=== PATIENT | female | born 1955 | race Caucasian/White ===

== ENCOUNTER → 2016-10-26 | Outpatient (CLI) | payer BC ==
--- NOTE | 2016-10-26 11:50 | XR ---
EXAMINATION TYPE: XR forearm LT DATE OF EXAM ORDERED: 10/26/2016 11:24 AM HISTORY: pain R52. COMPARISON: None. FINDINGS: No fracture, dislocation or other acute osseous lesion is seen. IMPRESSION: NORMAL LEFT RADIUS AND ULNA. IN LIGHT OF THE PATIENT'S CLINICAL HISTORY AND DEDICATED STUDY OF THE EL BOW MAY BE WORTHWHILE.
== END | disposition home or self-care (01) ==
LOC: RADXRMAIN 11:06
PROVIDERS: ATTEND Family Medicine
DX: M25.522 Pain in left elbow (principal)

== ENCOUNTER → 2016-11-03 | Outpatient (CLI) | payer BC ==
[2016-11-03 09:06] LABS: Blood Urea Nitrogen 15 mg/dL (7-17); Non-African American GFR(MDRD) >60 (>60 ml/min/1.73 sqM)
--- NOTE | 2016-11-03 10:07 | CT ---
EXAMINATION TYPE: CT soft tissue neck w con DATE OF EXAM: 11/03/2016 9:46 AM COMPARISON: NONE HISTORY: Right sided neck swelling CT DLP: 655.3 mGycm Automated exposure control for dose reduction was used. CONTRAST: CT scan of the neck is performed following with IV Contrast, patient injected with 100 mL of Omnipaqu e 300. Axial images are obtained, coronal and sagittal reformatted images are reviewed. FINDINGS: Degenerative changes spine with postsurgical changes noted. Lung apices clear with paraseptal emphysematous changes. Thyroid gland enhances normally. No evidence of thyroid nodule. Atherosclerotic change involving the carotid bifurcation bilaterally Carotid and submandibular glands have a normal appearance. Nasopharynx and oropharynx symmetric. Calc ification along the left globe incidentally noted. Base of the tongue is symmetric. Shotty adenopathy seen throughout the neck bilaterally with no pathologic adenopathy identified. IMPRESSION: 1. No evidence of soft tissue mass or acute process.
--- NOTE | 2016-11-03 11:21 | FL ---
ESOPHOGRAM. HISTORY: Dysphagia Esophagram was performed per the air contrast technique. The patient swallowed barium and effervesce nt crystals without difficulty or delay. Esophageal peristalsis and motility appear to be within normal limits. There is no evidence for filling defect, mass or diverticulum. There is a small sliding-type hiatal hernia. Subsequently single contrast cervical esophagram was performed which fails demonstrate evidence for a spiration penetration or mass. IMPRESSION: Small sliding-type hiatal hernia. Otherwise unremarkable study.
== END ==
LOC: RADCTMAIN 08:12
PROVIDERS: ATTEND Family Medicine
DX: K44.9 Diaphragmatic hernia without obstruction or gangrene (principal)
CPT/HCPCS: 82565; 84520; 74220; 70491; 36415; Q9967

== ENCOUNTER 2016-11-08 07:31 | Day surgery (SDC) | payer BC ==
[2016-11-03 14:33] VITALS: BMI 33.6
[~2016-11-08 07:31] MED LIST: LACTATED RINGERS 1,000 ML IV SCH; LIDOCAINE 1% 20 ML VIAL (10MG/ML) FOR IV START INTRADERMA PRN
[2016-11-08 07:57] VITALS: TEMP 97.7
[2016-11-08 08:10] LABS: Glucose,Whole Blood 224 mg/dL (75-99)
[2016-11-08] MEDS ORDERED: LIDOCAINE 1% INJ 10MG/ML (20 ML MDV) ONE (08:46)
[2016-11-08] MEDS ORDERED: GLYCOPYRROLATE 0.2 MG/ML 2 ML VIAL ONE (08:46)
[2016-11-08] MEDS ORDERED: PROPOFOL 10 MG/ML 20 ML VIAL IV ONE (08:46)
--- NOTE | 2016-11-08 09:11 | P.PCN ---
Date of Procedure: 11/08/16 Procedure(s) Performed: Procedure: Esophagogastroduodenoscopy and biopsy. Preoperative diagnosis: Dysphagia. Postoperative diagnosis: 1. Small sliding hiatal hernia with no obvious esophagitis or complicated reflux disease. 2. Mild gastritis and duodenitis. Preparation sedation: Was provided by anesthesia. Brief clinical history: The patient is a 61-year-old female who is referred for this evaluation because of fissures with dysphagia that she has been having for the last 2-3 months. She may have had problems years before, but for several years recently she had no problems until the onset of her symptoms within the last 2-3 months and apparently getting worse. No alarm symptoms. No prior history of reflux. Procedure: With the patient on her left lateral decubitus position and after informed consent and adequate sedation, I passed the Olympus-GIF 160 video upper endoscope through the cricopharyngeus down the esophagus. GE junction was around 38 cm from the incisors and there was a small sliding hiatal hernia. The esophagus did not show any obvious erosions, ulcers, strictures or Vora 's esophagus. The endoscope was then passed into the stomach which was insufflated with air and inspected in detail including the retroflex view in the cardia. Finally the endoscope was passed through the pylorus into the duodenum. There were no pyloric channel ulcers. Duodenal bulb, post bulbar area and descending duodenum as well as the antrum showed minimal mottling and erythema consistent with mild gastritis and duodenitis. I obtained biopsies from the duodenum, antrum and esophagus then the endoscope was withdrawn. The patient tolerated the procedure well. Plan: The patient was reassured. Will await pathology results. Its possible that we are dealing with a motility disorder and this can be investigated further depending on her course, especially if there is nutritional compromise.
[2016-11-08 09:12] VITALS: RESP 18
[2016-11-08 09:47] VITALS: BP 156/70; PULSE 79
== END 2016-11-08 09:56 | disposition home or self-care (01) ==
LOC: ORWHC2ENDO 07:31
DX: K29.80 Duodenitis without bleeding (principal); K29.70 Gastritis, unspecified, without bleeding; K20.9 Esophagitis, unspecified; K44.9 Diaphragmatic hernia without obstruction or gangrene; I10 Essential (primary) hypertension; E11.9 Type 2 diabetes mellitus without complications; Z88.5 Allergy status to narcotic agent; Z79.891 Long term (current) use of opiate analgesic; Z79.4 Long term (current) use of insulin; Z79.899 Other long term (current) drug therapy; Z86.73 Personal history of transient ischemic attack (TIA), and cerebral infarction without residual deficits
CPT/HCPCS: 88305; 88342; 43239; J2001; J2704

== ENCOUNTER 2017-09-06 20:57 | Inpatient (IN) | payer BC ==
[2017-09-06] MEDS ORDERED: SODIUM CHLORIDE 0.9% 1,000 ML IV STA ×2 (21:16→21:46)
[2017-09-06] MEDS ORDERED: ONDANSETRON 4 MG/2 ML VIAL IVP STA (21:16)
[2017-09-06] MEDS ORDERED: SODIUM CHLORIDE 0.9% 500 ML IV STA (21:16)
[2017-09-06] MEDS ORDERED: PANTOPRAZOLE 40 MG/10 ML VIAL IVP STA (21:16)
[2017-09-06] MEDS ORDERED: MORPHINE SULFATE 5 MG/ML SYRINGE IVP STA (21:46)
--- NOTE | 2017-09-06 22:06 | ED ---
General Adult HPI - General Chief complaint: Recheck/Abnormal Lab/Rx Stated complaint: HYPERGLYCEMIA Time Seen by Provider: 09/06/17 21:15 Source: EMS, RN notes reviewed, old records reviewed Mode of arrival: EMS Limitations: no limitations - History of Present Illness Initial comments: This is a 8-year-old female to the ER for evaluation of weakness, nausea, vomiting, back pain. Patient has not been for a day, been vomiting all day today. Patient has diabetes blood sugar was running high earlier today. Patient denies any recent fevers. No abdominal pain. No recent change in medications. No sick contacts or travel history. - Related Data Home Medications Medication Instructions Recorded Confirmed Latanoprost Ophth [Xalatan 0.005%] 1 drops BOTH EYES HS 11/03/16 09/06/17 Valsartan [Diovan] 160 mg PO DAILY 11/03/16 09/06/17 INSULIN LISPRO (For Pump) [humaLOG 0.01 units SQ-PUMP CONTINUOUS 09/06/17 (For Pump)] Allergies Allergy/AdvReac Type Severity Reaction Status Date / Time codeine Allergy Nausea & Verified 09/06/17 21:30 Vomiting Review of Systems ROS Statement: Those systems with pertinent positive or pertinent negative responses have been documented in the HPI. ROS Other: All systems not noted in ROS Statement are negative. Past Medical History Past Medical History: CVA/TIA, Diabetes Mellitus, Hypertension Additional Past Medical History / Comment(s): chronic back and neck pain History of Any Multi-Drug Resistant Organisms: None Reported Past Surgical History: Orthopedic Surgery, Tubal Ligation Past Psychological History: No Psychological Hx Reported Smoking Status: Never smoker Past Alcohol Use History: None Reported Past Drug Use History: None Reported General Exam Limitations: no limitations General appearance: alert, lethargic, in distress Head exam: Present: atraumatic, normocephalic, normal inspection Eye exam: Present: normal appearance, PERRL, EOMI. Absent: scleral icterus, conjunctival injection, periorbital swelling ENT exam: Present: normal exam, mucous membranes moist Neck exam: Present: normal inspection. Absent: tenderness, meningismus, lymphadenopathy Respiratory exam: Present: normal lung sounds bilaterally. Absent: respiratory distress, wheezes, rales, rhonchi, stridor Cardiovascular Exam: Present: regular rate, normal rhythm, normal heart sounds. Absent: systolic murmur, diastolic murmur, rubs, gallop, clicks GI/Abdominal exam: Present: soft, normal bowel sounds. Absent: distended, tenderness, guarding, rebound, rigid Extremities exam: Present: normal inspection, full ROM, normal capillary refill. Absent: tenderness, pedal edema, joint swelling, calf tenderness Back exam: Present: normal inspection Neurological exam: Present: alert, oriented X3, CN II-XII intact Psychiatric exam: Present: normal affect, normal mood Skin exam: Present: warm, dry, intact, normal color. Absent: rash Course Vital Signs 09/06/17 21:03 Pulse Rate 91 Respiratory 22 Rate Blood Pressure 199/80 O2 Sat by Pulse 100 Oximetry - Reevaluation(s) Reevaluation #1: 09/06/17 22:34 Patient continued to vomit, severely dehydrated although feeling better with IV hydration, symptom management EKG Findings - EKG Comments: EKG Findings:: AG shows normal sinus rhythm rate of 86, PA 200, QRS 92, QTc 509 Medical Decision Making - Medical Decision Making 62 female ER for evaluation nausea vomiting dehydration, patient will be admitted for IV resuscitation and symptoms management, patient was severely elevated blood sugar, acidotic, DKA. Patient be admitted for insulin, IV resuscitation and monitoring of electrolytes. - Lab Data Result diagrams: 09/06/17 21:42 Lab Results 09/06/17 09/06/17 09/06/17 Range/Units 20:02 20:02 21:42 WBC 28.7 H* (3.8-10.6) k/uL RBC 5.11 (3.80-5.40) m/uL Hgb 14.1 (11.4-16.0) gm/dL Hct 51.7 H (34.0-46.0) % MCV 101.2 H (80.0-100.0) fL MCH 27.6 (25.0-35.0) pg MCHC 27.2 L (31.0-37.0) g/dL RDW 12.7 (11.5-15.5) % Plt Count 398 (150-450) k/uL Plasma Lactic Acid Galen 8.0 H* (0.7-2.0) mmol/L Acetone, Qual Positive (Negative) - Radiology Data Radiology results: report reviewed (Chest x-ray is negative), image reviewed Disposition Clinical Impression: Nausea & vomiting, Dehydration, Lactic acidosis, DKA (diabetic ketoacidoses) Disposition: ADMITTED IP TO THIS HOSP Condition: Serious Referrals: Vianney Cantu MD [Primary Care Provider] - 1-2 days
[2017-09-06 22:15] LABS: HCT 51.7 % (34.0-46.0); HGB 14.1 gm/dL (11.4-16.0); Hypochromasia Marked; MCH 27.6 pg (25.0-35.0); MCHC 27.2 g/dL (31.0-37.0); MCV 101.2 fL (80.0-100.0); Mean Platelet Volume 7.5; Platelet Count 398 k/uL (150-450); RBC 5.11 m/uL (3.80-5.40); RDW 12.7 % (11.5-15.5)
[2017-09-06 22:17] LABS: WBC 28.7 k/uL (3.8-10.6)
[2017-09-06 22:24] LABS: Albumin 4.4 g/dL (3.5-5.0); Calcium 9.4 mg/dL (8.4-10.2); Chloride 105 mmol/L (98-107); Sodium 143 mmol/L (137-145); Total Bilirubin 0.4 mg/dL (0.2-1.3)
[2017-09-06] MEDS ORDERED: SODIUM CHLORIDE 0.9% 1,000 ML IV ONE (22:35)
[2017-09-06] MEDS ORDERED: MORPHINE SULFATE 5 MG/ML SYRINGE IVP PRN (22:35)
[2017-09-06] MEDS ORDERED: ONDANSETRON 4 MG/2 ML VIAL IVP PRN (22:35)
[2017-09-06] MEDS ORDERED: INSULIN REGULAR BOLUS (FROM DRIP BAG) IV ONE (22:37)
[2017-09-06] MEDS ORDERED: cefTRIAXone IN SWFI 1,000 MG/10 ML SYRINGE IVP STA (22:37)
[2017-09-06 22:38] LABS: Carbon Dioxide <5 mmol/L (22-30); Glucose 714 mg/dL (74-99)
[2017-09-06 22:39] LABS: ALT 28 U/L (9-52); AST 32 U/L (14-36); Alkaline Phosphatase 149 U/L (38-126); Blood Urea Nitrogen 36 mg/dL (7-17); Magnesium 2.7 mg/dL (1.6-2.3); Potassium 6.1 mmol/L (3.5-5.1)
--- NOTE | 2017-09-06 22:44 | XR ---
EXAMINATION TYPE: XR chest 2V DATE OF EXAM: 09/06/2017 COMPARISON: 09/02/2014 HISTORY: Chest pain TECHNIQUE: Frontal and lateral views of the chest are obtained. FINDINGS: Heart and mediastinum are normal. Lungs are clear of consolidation. Diaphragm is normal. T here are chest leads. Bony thorax is intact. IMPRESSION: No active cardiopulmonary disease. No adverse change compared to old exam. Minimal scarr ing at the left lung base.
[2017-09-06 22:46] LABS: Creatine Kinase MB 1.6 ng/mL (0.0-2.4)
[2017-09-06 22:48] LABS: Troponin I 0.074 ng/mL (0.000-0.034)
[2017-09-06 23:01] LABS: Band Neutrophils % 4 %; Lymphocytes # (M) 2.87 k/uL (1.0-4.8); Monocytes # (M) 0.57 k/uL (0-1.0); Myelocytes # (M) 1.44 k/uL (0); Myelocytes % 5 %; Neutrophils % (M) 80 %; Nucleated Red Blood Cells 0 /100 WBC (0-0); Total Cells Counted 200
[2017-09-06 23:02] LABS: Crenated RBC Present; Polychromasia Present
[2017-09-06 23:08] LABS: Partial Thromboplastin Time 30.8 sec (22.0-30.0); Prothrombin Time 10.1 sec (9.0-12.0); VBG PH 6.78 (7.31-7.41)
[2017-09-06] MEDS: INSULIN REGULAR 100 UNIT in SODIUM CHLORIDE 0.9% 100 ML IV SCH (23:13)
[2017-09-06] MEDS ORDERED: SODIUM BICARB 8.4% 50 ML SYR (1 MEQ/ML) IV ONE (23:21)
--- NOTE | 2017-09-06 23:25 | ED ---
Medical Decision Making - Medical Decision Making 62 female here with severe dehydration nausea vomiting and DKA, severely low pH 6.8, patient bicarb, insulin drip was IV resuscitation, all x-rays replaced as needed, patient will be admitted to ICU. - Lab Data Result diagrams: 09/06/17 21:42 09/06/17 20:02 Lab Results 09/06/17 09/06/17 09/06/17 Range/Units 20:02 20:02 20:02 WBC (3.8-10.6) k/uL RBC (3.80-5.40) m/uL Hgb (11.4-16.0) gm/dL Hct (34.0-46.0) % MCV (80.0-100.0) fL MCH (25.0-35.0) pg MCHC (31.0-37.0) g/dL RDW (11.5-15.5) % Plt Count (150-450) k/uL Neutrophils % (Manual) % Band Neutrophils % % Lymphocytes % (Manual) % Monocytes % (Manual) % Myelocytes % % Neutrophils # (Manual) (1.3-7.7) k/uL Lymphocytes # (Manual) (1.0-4.8) k/uL Monocytes # (Manual) (0-1.0) k/uL Myelocytes # (Manual) (0) k/uL Nucleated RBCs (0-0) /100 WBC Manual Slide Review Polychromasia Hypochromasia Crenated Cell PT (9.0-12.0) sec INR (<1.2) APTT (22.0-30.0) sec VBG pH (7.31-7.41) VBG pCO2 (37-51) mmHg VBG HCO3 (24-28) mmol/L Sodium 143 (137-145) mmol/L Potassium 6.1 H (3.5-5.1) mmol/L Chloride 105 (98-107) mmol/L Carbon Dioxide <5 L* (22-30) mmol/L Anion Gap mmol/L BUN 36 H (7-17) mg/dL Creatinine 1.50 H (0.52-1.04) mg/dL Est GFR (MDRD) Af Amer 43 (>60 ml/min/1.73 sqM) Est GFR (MDRD) Non-Af 35 (>60 ml/min/1.73 sqM) Glucose 714 H* (74-99) mg/dL Plasma Lactic Acid Galen (0.7-2.0) mmol/L Calcium 9.4 (8.4-10.2) mg/dL Magnesium 2.7 H (1.6-2.3) mg/dL Total Bilirubin 0.4 (0.2-1.3) mg/dL AST 32 (14-36) U/L ALT 28 (9-52) U/L Alkaline Phosphatase 149 H (38-126) U/L Total Creatine Kinase 88 (30-135) U/L CK-MB (CK-2) 1.6 (0.0-2.4) ng/mL CK-MB (CK-2) Rel Index 1.8 Troponin I 0.074 H* (0.000-0.034) ng/mL Total Protein 7.0 (6.3-8.2) g/dL Albumin 4.4 (3.5-5.0) g/dL Acetone, Qual Positive (Negative) Influenza Type A RNA (Not Detectd) Influenza Type B (PCR) (Not Detectd) 09/06/17 09/06/17 09/06/17 Range/Units 20:02 21:42 22:33 WBC 28.7 H* (3.8-10.6) k/uL RBC 5.11 (3.80-5.40) m/uL Hgb 14.1 (11.4-16.0) gm/dL Hct 51.7 H (34.0-46.0) % MCV 101.2 H (80.0-100.0) fL MCH 27.6 (25.0-35.0) pg MCHC 27.2 L (31.0-37.0) g/dL RDW 12.7 (11.5-15.5) % Plt Count 398 (150-450) k/uL Neutrophils % (Manual) 80 % Band Neutrophils % 4 % Lymphocytes % (Manual) 10 % Monocytes % (Manual) 2 % Myelocytes % 5 % Neutrophils # (Manual) 24.10 H (1.3-7.7) k/uL Lymphocytes # (Manual) 2.87 (1.0-4.8) k/uL Monocytes # (Manual) 0.57 (0-1.0) k/uL Myelocytes # (Manual) 1.44 H (0) k/uL Nucleated RBCs 0 (0-0) /100 WBC Manual Slide Review Performed Polychromasia Present Hypochromasia Marked Crenated Cell Present PT (9.0-12.0) sec INR (<1.2) APTT (22.0-30.0) sec VBG pH 6.78 L* (7.31-7.41) VBG pCO2 22 L (37-51) mmHg VBG HCO3 3 L* (24-28) mmol/L Sodium (137-145) mmol/L Potassium (3.5-5.1) mmol/L Chloride (98-107) mmol/L Carbon Dioxide (22-30) mmol/L Anion Gap mmol/L BUN (7-17) mg/dL Creatinine (0.52-1.04) mg/dL Est GFR (MDRD) Af Amer (>60 ml/min/1.73 sqM) Est GFR (MDRD) Non-Af (>60 ml/min/1.73 sqM) Glucose (74-99) mg/dL Plasma Lactic Acid Galen 8.0 H* (0.7-2.0) mmol/L Calcium (8.4-10.2) mg/dL Magnesium (1.6-2.3) mg/dL Total Bilirubin (0.2-1.3) mg/dL AST (14-36) U/L ALT (9-52) U/L Alkaline Phosphatase (38-126) U/L Total Creatine Kinase (30-135) U/L CK-MB (CK-2) (0.0-2.4) ng/mL CK-MB (CK-2) Rel Index Troponin I (0.000-0.034) ng/mL Total Protein (6.3-8.2) g/dL Albumin (3.5-5.0) g/dL Acetone, Qual (Negative) Influenza Type A RNA (Not Detectd) Influenza Type B (PCR) (Not Detectd) 09/06/17 09/06/17 Range/Units 22:33 22:55 WBC (3.8-10.6) k/uL RBC (3.80-5.40) m/uL Hgb (11.4-16.0) gm/dL Hct (34.0-46.0) % MCV (80.0-100.0) fL MCH (25.0-35.0) pg MCHC (31.0-37.0) g/dL RDW (11.5-15.5) % Plt Count (150-450) k/uL Neutrophils % (Manual) % Band Neutrophils % % Lymphocytes % (Manual) % Monocytes % (Manual) % Myelocytes % % Neutrophils # (Manual) (1.3-7.7) k/uL Lymphocytes # (Manual) (1.0-4.8) k/uL Monocytes # (Manual) (0-1.0) k/uL Myelocytes # (Manual) (0) k/uL Nucleated RBCs (0-0) /100 WBC Manual Slide Review Polychromasia Hypochromasia Crenated Cell PT 10.1 (9.0-12.0) sec INR 1.0 (<1.2) APTT 30.8 H (22.0-30.0) sec VBG pH (7.31-7.41) VBG pCO2 (37-51) mmHg VBG HCO3 (24-28) mmol/L Sodium (137-145) mmol/L Potassium (3.5-5.1) mmol/L Chloride (98-107) mmol/L Carbon Dioxide (22-30) mmol/L Anion Gap mmol/L BUN (7-17) mg/dL Creatinine (0.52-1.04) mg/dL Est GFR (MDRD) Af Amer (>60 ml/min/1.73 sqM) Est GFR (MDRD) Non-Af (>60 ml/min/1.73 sqM) Glucose (74-99) mg/dL Plasma Lactic Acid Galen (0.7-2.0) mmol/L Calcium (8.4-10.2) mg/dL Magnesium (1.6-2.3) mg/dL Total Bilirubin (0.2-1.3) mg/dL AST (14-36) U/L ALT (9-52) U/L Alkaline Phosphatase (38-126) U/L Total Creatine Kinase (30-135) U/L CK-MB (CK-2) (0.0-2.4) ng/mL CK-MB (CK-2) Rel Index Troponin I (0.000-0.034) ng/mL Total Protein (6.3-8.2) g/dL Albumin (3.5-5.0) g/dL Acetone, Qual (Negative) Influenza Type A RNA Not Detected (Not Detectd) Influenza Type B (PCR) Not Detected (Not Detectd) - Radiology Data Radiology results: report reviewed (Chest x-ray is negative for acute disease), image reviewed Critical Care Time Critical Care Time: Yes Total Critical Care Time: 31 Disposition Clinical Impression: Nausea & vomiting, Dehydration, Lactic acidosis, DKA (diabetic ketoacidoses) Disposition: ADMITTED IP TO THIS [facility] Condition: Serious Referrals: Vianney Cantu MD [Primary Care Provider] - 1-2 days
[2017-09-07 00:20] LABS: Appearance,Urine Cloudy (Clear); Bilirubin,Urine Negative (Negative); Blood,Urine Small (Negative); Color,Urine Light Yellow; Glucose,Urine (UA) 4+ (Negative); Granular Casts,Urine 1 /lpf (0); Leukocyte Esterase,Urine Negative (Negative); Nitrite,Urine Negative (Negative); Protein,Urine 1+ (Negative); RBC,Urine 4 /hpf (0-5); Specific Gravity,Urine 1.013 (1.001-1.035); Squamous Epithelial Cell,Urine 3 /hpf (0-4); Urobilinogen,Urine <2.0 mg/dL (<2.0); WBC,Urine 5 /hpf (0-5)
[2017-09-07 00:23] LABS: Ketones,Urine 3+ (Negative)
[2017-09-07 00:27] LABS: Glucose,Whole Blood >600 mg/dL (75-99)
[2017-09-07] MEDS: SODIUM CHLORIDE 0.9% 1,000 ML IV STA ×2 (00:49→03:23)
[2017-09-07 01:18] LABS: Glucose,Whole Blood 556 mg/dL (75-99)
[2017-09-07 02:14] LABS: Blood Urea Nitrogen 39 mg/dL (7-17); Chloride 112 mmol/L (98-107); Phosphorus 6.2 mg/dL (2.5-4.5); Potassium 5.3 mmol/L (3.5-5.1); Sodium 146 mmol/L (137-145)
[2017-09-07 02:20] LABS: Carbon Dioxide <5 mmol/L (22-30); Glucose 619 mg/dL (74-99)
[2017-09-07 02:29] LABS: Glucose,Whole Blood 512 mg/dL (75-99)
[2017-09-07 03:09] LABS: Glucose,Whole Blood 506 mg/dL (75-99)
[2017-09-07] MEDS: SODIUM CHLORIDE 0.9% 1,000 ML IV SCH ×2 (03:24→04:12)
[2017-09-07 04:16] LABS: Glucose,Whole Blood 394 mg/dL (75-99)
[2017-09-07] MEDS ORDERED: NALOXONE 0.4 MG/ML 1 ML VIAL IV PRN (04:28)
[2017-09-07 05:09] LABS: Glucose,Whole Blood 409 mg/dL (75-99)
[2017-09-07 06:00] LABS: Basophils # (A) 0.1 k/uL (0-0.2); Basophils % (A) 1 %; Eosinophils % (A) 0 %; HCT 42.5 % (34.0-46.0); HGB 12.7 gm/dL (11.4-16.0); Hypochromasia Marked; Lymphocytes % (A) 9 %; MCHC 29.8 g/dL (31.0-37.0); Mean Platelet Volume 7.8; Monocytes # (A) 1.1 k/uL (0-1.0); Monocytes % (A) 5 %; Neutrophils # (A) 19.6 k/uL (1.3-7.7); Neutrophils % (A) 85 %; Platelet Count 302 k/uL (150-450)
[2017-09-07 06:11] LABS: Glucose,Whole Blood 344 mg/dL (75-99)
[2017-09-07 06:16] LABS: MCV 90.5 fL (80.0-100.0)
[2017-09-07 06:17] LABS: Calcium 8.9 mg/dL (8.4-10.2)
[2017-09-07 06:23] LABS: Potassium 4.7 mmol/L (3.5-5.1)
[2017-09-07 06:24] LABS: Magnesium 2.5 mg/dL (1.6-2.3); Phosphorus 1.9 mg/dL (2.5-4.5)
[2017-09-07 06:59] LABS: Glucose,Whole Blood 282 mg/dL (75-99)
[2017-09-07] MEDS: D5-0.45% NACL WITH KCL 20MEQ/L 1,000 ML IV SCH ×2 (07:33)
[2017-09-07 08:24] LABS: Glucose,Whole Blood 248 mg/dL (75-99)
[2017-09-07] MEDS: INSULIN REGULAR 100 UNIT in SODIUM CHLORIDE 0.9% 100 ML IV SCH ×2 (08:25→09:23)
[2017-09-07] MEDS: ENOXAPARIN 40 MG/0.4 ML SYRINGE SQ SCH (08:26)
[2017-09-07] MEDS ORDERED: SODIUM CHLORIDE 0.9% 2,000 ML IV ONE (08:33)
[2017-09-07] MEDS: PANTOPRAZOLE 40 MG/10 ML VIAL IVP SCH (09:21)
[2017-09-07 09:22] LABS: Glucose,Whole Blood 264 mg/dL (75-99)
[2017-09-07 10:00] LABS: VBG PH 7.28 (7.31-7.41)
[2017-09-07 10:03] LABS: Anion Gap 10 mmol/L; Blood Urea Nitrogen 34 mg/dL (7-17); Carbon Dioxide 17 mmol/L (22-30); Glucose 254 mg/dL (74-99); Lipase 266 U/L (23-300); Potassium 4.4 mmol/L (3.5-5.1); Sodium 149 mmol/L (137-145)
[2017-09-07 10:05] LABS: Glucose,Whole Blood 222 mg/dL (75-99)
[2017-09-07 10:08] LABS: Phosphorus 0.9 mg/dL (2.5-4.5)
[2017-09-07 10:09] LABS: Chloride 122 mmol/L (98-107)
[2017-09-07 11:12] LABS: Glucose,Whole Blood 223 mg/dL (75-99)
[2017-09-07] MEDS ORDERED: SODIUM CHLORIDE 0.45% 1,000 ML IV SCH (12:00)
--- NOTE | 2017-09-07 12:21 | P.HPIM ---
History of Present Illness H&P Date: 09/07/17 Chief Complaint: high blood sugar This is a 62-year-old female patient of Dr. Cantu with past medical history of diabetes mellitus type 1 diagnosed at age 23, hypertension, chronic back and neck pain, or coma and diabetic retinopathy and remote history of tobacco use. Patient states that she thought she had the stomach flu sudden onset yesterday. She was feeling weak and lethargic along with a cough and vomiting every 30 minutes. She tried to drink water, flavored water, apple juice but continued to vomit. She had no food intake. She follows with fur farmer Dr. Gibson at the [facility] and is on an insulin pump which she has had for years. She states she has never had DKA in the past. Her blood sugar at the lowest at home yesterday was 425 but climbing higher. She came into [facility] emergency center and was found have a blood sugar of 714, positive acetone, influenza negative, lipase negative, sodium was 143 and potassium 6.1, BUN 36 creatinine 1.5. Her initial lactic acid was 8 with repeat at 1.1. Phosphorus initially 10.9 with repeat is 0.9. Initial troponin was 0.07 for repeat was 0.276. Initial venous blood gas was pH 6.78, CO2 22 and bicarb 3. Urinalysis was cloudy, nitrate and leukoesterase negative. She was given 3 L IV fluid bolus, sodium bicarb,and insulin drip was started. she has not required vasopressors.Patient was admitted into intensive care unit and consult requested with Dr. Caballero for intensive care management. Subsequently, consult with cardiology added for elevated troponin. Urine culture is in progress and hemoglobin A1c is in progress. Patient has requested to be no CODE STATUS. Patient does state that she follows with an eye doctor and foot doctor on a regular basis. Patient's is to bring in her insulin pump from home. Review of Systems All systems: negative Constitutional: Reports fatigue, Reports lethargy, Reports malaise, Reports weakness, Denies chills, Denies fever Eyes: denies blurred vision, denies pain Ears, nose, mouth and throat: Denies headache, Denies sore throat Cardiovascular: Reports shortness of breath, Denies chest pain, Denies syncope Respiratory: Reports cough, Reports dyspnea, Denies cough with sputum, Denies excessive sputum, Denies hemoptysis, Denies home oxygen Gastrointestinal: Reports nausea, Reports vomiting, Denies abdominal pain, Denies diarrhea Genitourinary: Denies dysuria, Denies hematuria Musculoskeletal: Denies myalgias Integumentary: Denies pruritus, Denies rash Neurological: Denies numbness, Denies weakness Psychiatric: Denies anxiety, Denies depression Endocrine: Denies fatigue, Denies weight change Past Medical History Past Medical History: CVA/TIA, Diabetes Mellitus, Hypertension Additional Past Medical History / Comment(s): diabetes mellitus type 1 on insulin pump, chronic back and neck pain, blind in left eye, diabetic retinopathy, glaucoma History of Any Multi-Drug Resistant Organisms: None Reported Past Surgical History: Orthopedic Surgery, Tubal Ligation Additional Past Surgical History / Comment(s): bilateral intraocular lens implants, laser surgery on her left eye Past Anesthesia/Blood Transfusion Reactions: No Reported Reaction Past Psychological History: No Psychological Hx Reported Smoking Status: Former smoker Past Alcohol Use History: None Reported Additional Past Alcohol Use History / Comment(s): patient was a smoker one pack per day for 20 years and quit 15 years ago. She denies any medical marijuana, marijuana, street drug or alcohol use. She lives at home with her . Past Drug Use History: None Reported - Past Family History Mother Additional Family Medical History / Comment(s): Mother had history of irregular heartbeat. Father Additional Family Medical History / Comment(s): Father at age 44 from complications of diabetes. Sister(s) Additional Family Medical History / Comment(s): Patient has one sister diagnosed with brain cancer and survived. She has no history of diabetes. Patient does not have any brothers. Patient has 2 children that are not diabetic. Medications and Allergies Home Medications Medication Instructions Recorded Confirmed Type Latanoprost Ophth [Xalatan 0.005%] 1 drops BOTH EYES HS 11/03/16 09/06/17 History Valsartan [Diovan] 160 mg PO DAILY 11/03/16 09/06/17 History INSULIN LISPRO (For Pump) [humaLOG 0.01 units SQ-PUMP CONTINUOUS 09/06/17 History (For Pump)] Allergies Allergy/AdvReac Type Severity Reaction Status Date / Time codeine Allergy Nausea & Verified 09/06/17 21:30 Vomiting Physical Exam Vitals: Vital Signs Temp Pulse Pulse Resp BP Pulse Ox 09/07/17 08:00 98.5 F 94 17 134/55 99 09/07/17 07:30 96 20 108/45 99 09/07/17 07:03 100 09/07/17 07:00 94 17 108/45 99 09/07/17 06:30 97 22 121/42 99 09/07/17 06:00 94 17 121/42 100 09/07/17 05:30 96 18 109/42 100 09/07/17 05:00 95 15 109/42 100 09/07/17 04:30 95 16 108/55 100 09/07/17 04:00 97.2 F L 94 90 13 104/36 100 09/07/17 03:30 94 19 90/55 100 09/07/17 03:00 97.3 F L 91 17 101/39 100 09/07/17 02:30 96.6 F L 90 18 127/52 100 09/07/17 02:01 97.4 F L 90 17 100 09/07/17 02:00 92 18 150/65 100 09/07/17 01:00 94 18 128/58 100 09/07/17 00:00 84 139/61 09/06/17 23:30 92.2 F L 142/64 09/06/17 23:00 88 18 146/67 99 09/06/17 21:03 91 22 199/80 100 Intake and Output 09/06/17 09/07/17 09/07/17 22:59 06:59 14:59 Intake Total 1100 602.000 Output Total 600 210 Balance 500 392.000 Intake: IV 1100 400 Sodium Chloride 0.9% 1, 600 400 000 ml @ 200 mls/hr IV . Q5H DAVID Rx#:[id number] Sodium Chloride 0.9% 500 500 ml @ 999 mls/hr IV .Q31M STA Rx#:[id number] Intake, IV Titration 202.000 Amount Insulin Regular 100 unit 202.000 In Sodium Chloride 0.9% 100 ml @ 0.1 UNITS/KG/HR 9.62 mls/hr IV .[id number] DAVID Rx#:[id number] Output: Urine 600 210 Other: Voiding Method Indwelling Catheter Weight 95.254 kg 92 kg Gen: This is a 62 year old obese female. She is sitting up in the ICU bed and appears to be comfortable. HEENT: Head is atraumatic, normocephalic. Pupils equal, round. Sclerae is anicteric. conjunctiva pink. NECK: Supple. No JVD. No lymphadenopathy. No thyromegaly. Trachea midline. LUNGS: Clear to auscultation. No wheezes or rhonchi. No intercostal retractions. HEART: Regular rate and rhythm. 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 ABDOMEN: Obese. Soft. Bowel sounds are present. No masses. No tenderness.Merino catheter draining clear wilmer urine. EXTREMITIES: No pedal edema. No calf tenderness. NEUROLOGICAL: Patient is awake, alert and oriented x3. Cranial nerves 2 through 12 are grossly intact. Results CBC & Chem 7: 09/07/17 05:22 09/07/17 09:09 Labs: Abnormal Lab Results - Last 24 Hours (Table) 09/06/17 09/06/17 09/06/17 Range/Units 20:02 20:02 20:02 WBC (3.8-10.6) k/uL Hct (34.0-46.0) % MCV (80.0-100.0) fL MCHC (31.0-37.0) g/dL Neutrophils # (1.3-7.7) k/uL Neutrophils # (Manual) (1.3-7.7) k/uL Monocytes # (0-1.0) k/uL Myelocytes # (Manual) (0) k/uL APTT (22.0-30.0) sec VBG pH (7.31-7.41) VBG pCO2 (37-51) mmHg VBG HCO3 (24-28) mmol/L Sodium (137-145) mmol/L Potassium 6.1 H (3.5-5.1) mmol/L Chloride (98-107) mmol/L Carbon Dioxide <5 L* (22-30) mmol/L BUN 36 H (7-17) mg/dL Creatinine 1.50 H (0.52-1.04) mg/dL Glucose 714 H* (74-99) mg/dL POC Glucose (mg/dL) (75-99) mg/dL Plasma Lactic Acid Galen 8.0 H* (0.7-2.0) mmol/L Phosphorus (2.5-4.5) mg/dL Magnesium 2.7 H (1.6-2.3) mg/dL Alkaline Phosphatase 149 H (38-126) U/L Troponin I 0.074 H* (0.000-0.034) ng/mL Urine Appearance (Clear) Urine Protein (Negative) Urine Glucose (UA) (Negative) Urine Ketones (Negative) Urine Blood (Negative) 09/06/17 09/06/17 09/06/17 Range/Units 21:42 22:33 22:33 WBC 28.7 H* (3.8-10.6) k/uL Hct 51.7 H (34.0-46.0) % MCV 101.2 H (80.0-100.0) fL MCHC 27.2 L (31.0-37.0) g/dL Neutrophils # (1.3-7.7) k/uL Neutrophils # (Manual) 24.10 H (1.3-7.7) k/uL Monocytes # (0-1.0) k/uL Myelocytes # (Manual) 1.44 H (0) k/uL APTT 30.8 H (22.0-30.0) sec VBG pH 6.78 L* (7.31-7.41) VBG pCO2 22 L (37-51) mmHg VBG HCO3 3 L* (24-28) mmol/L Sodium (137-145) mmol/L Potassium (3.5-5.1) mmol/L Chloride (98-107) mmol/L Carbon Dioxide (22-30) mmol/L BUN (7-17) mg/dL Creatinine (0.52-1.04) mg/dL Glucose (74-99) mg/dL POC Glucose (mg/dL) (75-99) mg/dL Plasma Lactic Acid Galen (0.7-2.0) mmol/L Phosphorus (2.5-4.5) mg/dL Magnesium (1.6-2.3) mg/dL Alkaline Phosphatase (38-126) U/L Troponin I (0.000-0.034) ng/mL Urine Appearance (Clear) Urine Protein (Negative) Urine Glucose (UA) (Negative) Urine Ketones (Negative) Urine Blood (Negative) 0109/06/17 09/07/17 Range/Units 22:33 23:58 00:15 WBC (3.8-10.6) k/uL Hct (34.0-46.0) % MCV (80.0-100.0) fL MCHC (31.0-37.0) g/dL Neutrophils # (1.3-7.7) k/uL Neutrophils # (Manual) (1.3-7.7) k/uL Monocytes # (0-1.0) k/uL Myelocytes # (Manual) (0) k/uL APTT (22.0-30.0) sec VBG pH (7.31-7.41) VBG pCO2 (37-51) mmHg VBG HCO3 (24-28) mmol/L Sodium (137-145) mmol/L Potassium (3.5-5.1) mmol/L Chloride (98-107) mmol/L Carbon Dioxide (22-30) mmol/L BUN (7-17) mg/dL Creatinine (0.52-1.04) mg/dL Glucose (74-99) mg/dL POC Glucose (mg/dL) >600 H (75-99) mg/dL Plasma Lactic Acid Galen (0.7-2.0) mmol/L Phosphorus 10.9 H* (2.5-4.5) mg/dL Magnesium (1.6-2.3) mg/dL Alkaline Phosphatase (38-126) U/L Troponin I (0.000-0.034) ng/mL Urine Appearance Cloudy H (Clear) Urine Protein 1+ H (Negative) Urine Glucose (UA) 4+ H (Negative) Urine Ketones 3+ H (Negative) Urine Blood Small H (Negative) 09/07/17 09/07/17 09/07/17 Range/Units 01:16 01:40 01:40 WBC (3.8-10.6) k/uL Hct (34.0-46.0) % MCV (80.0-100.0) fL MCHC (31.0-37.0) g/dL Neutrophils # (1.3-7.7) k/uL Neutrophils # (Manual) (1.3-7.7) k/uL Monocytes # (0-1.0) k/uL Myelocytes # (Manual) (0) k/uL APTT (22.0-30.0) sec VBG pH (7.31-7.41) VBG pCO2 (37-51) mmHg VBG HCO3 (24-28) mmol/L Sodium 146 H (137-145) mmol/L Potassium 5.3 H (3.5-5.1) mmol/L Chloride 112 H (98-107) mmol/L Carbon Dioxide <5 L* (22-30) mmol/L BUN 39 H (7-17) mg/dL Creatinine 1.40 H (0.52-1.04) mg/dL Glucose 619 H* (74-99) mg/dL POC Glucose (mg/dL) 556 H (75-99) mg/dL Plasma Lactic Acid Galen 4.6 H* (0.7-2.0) mmol/L Phosphorus 6.2 H (2.5-4.5) mg/dL Magnesium (1.6-2.3) mg/dL Alkaline Phosphatase (38-126) U/L Troponin I (0.000-0.034) ng/mL Urine Appearance (Clear) Urine Protein (Negative) Urine Glucose (UA) (Negative) Urine Ketones (Negative) Urine Blood (Negative) 09/07/17 09/07/17 09/07/17 Range/Units 02:28 03:06 04:02 WBC (3.8-10.6) k/uL Hct (34.0-46.0) % MCV (80.0-100.0) fL MCHC (31.0-37.0) g/dL Neutrophils # (1.3-7.7) k/uL Neutrophils # (Manual) (1.3-7.7) k/uL Monocytes # (0-1.0) k/uL Myelocytes # (Manual) (0) k/uL APTT (22.0-30.0) sec VBG pH (7.31-7.41) VBG pCO2 (37-51) mmHg VBG HCO3 (24-28) mmol/L Sodium (137-145) mmol/L Potassium (3.5-5.1) mmol/L Chloride (98-107) mmol/L Carbon Dioxide (22-30) mmol/L BUN (7-17) mg/dL Creatinine (0.52-1.04) mg/dL Glucose (74-99) mg/dL POC Glucose (mg/dL) 512 H 506 H 394 H (75-99) mg/dL Plasma Lactic Acid Galen (0.7-2.0) mmol/L Phosphorus (2.5-4.5) mg/dL Magnesium (1.6-2.3) mg/dL Alkaline Phosphatase (38-126) U/L Troponin I (0.000-0.034) ng/mL Urine Appearance (Clear) Urine Protein (Negative) Urine Glucose (UA) (Negative) Urine Ketones (Negative) Urine Blood (Negative) 09/07/17 09/07/17 09/07/17 Range/Units 05:07 05:22 05:22 WBC 23.0 H (3.8-10.6) k/uL Hct (34.0-46.0) % MCV (80.0-100.0) fL MCHC 29.8 L (31.0-37.0) g/dL Neutrophils # 19.6 H (1.3-7.7) k/uL Neutrophils # (Manual) (1.3-7.7) k/uL Monocytes # 1.1 H (0-1.0) k/uL Myelocytes # (Manual) (0) k/uL APTT (22.0-30.0) sec VBG pH (7.31-7.41) VBG pCO2 (37-51) mmHg VBG HCO3 (24-28) mmol/L Sodium 148 H (137-145) mmol/L Potassium (3.5-5.1) mmol/L Chloride 118 H (98-107) mmol/L Carbon Dioxide 8 L* (22-30) mmol/L BUN 38 H (7-17) mg/dL Creatinine 1.30 H (0.52-1.04) mg/dL Glucose 357 H (74-99) mg/dL POC Glucose (mg/dL) 409 H (75-99) mg/dL Plasma Lactic Acid Galen (0.7-2.0) mmol/L Phosphorus 1.9 L (2.5-4.5) mg/dL Magnesium 2.5 H (1.6-2.3) mg/dL Alkaline Phosphatase (38-126) U/L Troponin I (0.000-0.034) ng/mL Urine Appearance (Clear) Urine Protein (Negative) Urine Glucose (UA) (Negative) Urine Ketones (Negative) Urine Blood (Negative) 09/07/17 09/07/17 09/07/17 Range/Units 06:09 06:57 08:21 WBC (3.8-10.6) k/uL Hct (34.0-46.0) % MCV (80.0-100.0) fL MCHC (31.0-37.0) g/dL Neutrophils # (1.3-7.7) k/uL Neutrophils # (Manual) (1.3-7.7) k/uL Monocytes # (0-1.0) k/uL Myelocytes # (Manual) (0) k/uL APTT (22.0-30.0) sec VBG pH (7.31-7.41) VBG pCO2 (37-51) mmHg VBG HCO3 (24-28) mmol/L Sodium (137-145) mmol/L Potassium (3.5-5.1) mmol/L Chloride (98-107) mmol/L Carbon Dioxide (22-30) mmol/L BUN (7-17) mg/dL Creatinine (0.52-1.04) mg/dL Glucose (74-99) mg/dL POC Glucose (mg/dL) 344 H 282 H 248 H (75-99) mg/dL Plasma Lactic Acid Galen (0.7-2.0) mmol/L Phosphorus (2.5-4.5) mg/dL Magnesium (1.6-2.3) mg/dL Alkaline Phosphatase (38-126) U/L Troponin I (0.000-0.034) ng/mL Urine Appearance (Clear) Urine Protein (Negative) Urine Glucose (UA) (Negative) Urine Ketones (Negative) Urine Blood (Negative) 09/07/17 Range/Units 09:20 WBC (3.8-10.6) k/uL Hct (34.0-46.0) % MCV (80.0-100.0) fL MCHC (31.0-37.0) g/dL Neutrophils # (1.3-7.7) k/uL Neutrophils # (Manual) (1.3-7.7) k/uL Monocytes # (0-1.0) k/uL Myelocytes # (Manual) (0) k/uL APTT (22.0-30.0) sec VBG pH (7.31-7.41) VBG pCO2 (37-51) mmHg VBG HCO3 (24-28) mmol/L Sodium (137-145) mmol/L Potassium (3.5-5.1) mmol/L Chloride (98-107) mmol/L Carbon Dioxide (22-30) mmol/L BUN (7-17) mg/dL Creatinine (0.52-1.04) mg/dL Glucose (74-99) mg/dL POC Glucose (mg/dL) 264 H (75-99) mg/dL Plasma Lactic Acid Galen (0.7-2.0) mmol/L Phosphorus (2.5-4.5) mg/dL Magnesium (1.6-2.3) mg/dL Alkaline Phosphatase (38-126) U/L Troponin I (0.000-0.034) ng/mL Urine Appearance (Clear) Urine Protein (Negative) Urine Glucose (UA) (Negative) Urine Ketones (Negative) Urine Blood (Negative) Thrombosis Risk Factor Assmnt - DVT/VTE Prophylaxis DVT/VTE Prophylaxis: Pharmacologic Prophylaxis ordered - Choose All That Apply Each Factor Represents 1 point: Age 41-60 years, Medical pt on bed rest, Obesity (BMI >25) Other Risk Factors: No Thrombosis Risk Factor Assessment Total Risk Factor Score: 3 Thrombosis Risk Factor Assessment Level: Moderate Risk Assessment and Plan Plan: 1. DKA in a patient with history of diabetes mellitus type 1 diagnosed at age 23, on insulin pump. Patient has been on insulin drip status post IV fluid boluses. Patient will be transitioned to Levemir 15 units and insulin drip will be stopped in 1 hour. NovoLog scale as well as NovoLog scheduled for units 3 times daily with meals will be added. Patient will be given another fluid bolus of 0.45 normal saline of [address] Caballero is on consult for intensive care management. 2. Electrolyte abnormalities: Hyperkalemia, hypernatremia, hyperchloremia, hypophosphatemia. For now fluid bolus of 0.45 normal saline. Continue to monitor and replace as indicated. 3. Elevated troponin but no clear chest pain. Echocardiogram and cardiology consult requested. 4. Acute kidney injury secondary to dehydration and significant nausea and vomiting. Continue to monitor kidney function. Avoid nephrotoxic agents. 5. Hypertension. Patient is on Diovan 60 mg daily. 6. Glaucoma, diabetic retinopathy and blindness in the left eye. Continue eyedrops. 7. Chronic back and neck pain, stable. 8. DVT prophylaxis. Lovenox. 9. Gastric intestinal prophylaxis. Protonix. CODE STATUS: No code per patient Patient will be admitted to the hospital for a minimum of 2 night stay. Discharge plan: Most likely return home Impression and plan of care have been directed as dictated by the signing physician. Radha Hdez nurse practitioner acting as scribe for signing physician.
[2017-09-07 12:50] LABS: Glucose,Whole Blood 206 mg/dL (75-99)
[2017-09-07] MEDS ORDERED: SODIUM CHLORIDE 0.45% 1,000 ML IV ONE (13:00)
[2017-09-07] MEDS: INSULIN DETEMIR 100 UNIT/ML 10 ML VIAL SQ SCH (13:00)
[2017-09-07] MEDS: INSULIN ASPART 100 UNIT/ML 1 ML 10 ML VIAL SQ SCH ×5 (13:02→20:43)
[2017-09-07 14:04] LABS: Glucose,Whole Blood >600 mg/dL (75-99)
[2017-09-07 14:11] LABS: Hemoglobin A1C 8.8 % (4.0-6.0)
--- NOTE | 2017-09-07 16:19 | P.CNPUL ---
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 The patient has been on a basal rate of 1.1 units an hour through her insulin pump. The patient stated that she developed what seemed to be a stomach flu few days ago. She settled having increased nausea and emesis and subsequently she noted that her blood sugars are quite elevated despite her being on an insulin pump. She started having a crease polyuria and polydipsia and she felt very lethargic and weak. She tried to keep up with her fluid intake however she was unable to. No diarrhea. No abdominal pain. No change in mental status. No cough or sputum production or chest tightness or wheezing. For all this reasons she presented emergency department which was found to have acute hyperglycemia with a sugar level of 714 with positive acetone. Her lipase level was normal. Her anion gap was elevated with a lactic acid level of 8 initially which subsequently came down to 1.1. Her acetone was positive. For this level of 10.9 with subsequently dropped down to 0.9. Troponin is a 0.07 and 0.276 respectively. The patient received a total of 3 L of IV fluids in form of a bolus and she started on an insulin drip. This morning her anion gap has closed and her bicarb level is up to 17 and her sugar levels are in the low 200s. She is alert and awake and she's able to tolerate some soft diet. No chest pain. No fever or chills per no aspiration. She has had previous history of CVA and she seems to have blindness in left eye. She seems to be compliant to her medications. She has had previous DKA in the past however none recently. Review of Systems Constitutional: Reports fatigue, Reports lethargy, Reports malaise, Reports weakness, Denies chills, Denies fever Eyes: denies blurred vision, denies pain, the patient is having blindness in her left eye and she has diabetic retinopathy and glaucoma. Ears, nose, mouth and throat: Denies headache, Denies sore throat Cardiovascular: Reports shortness of breath, Denies chest pain, Denies syncope Respiratory: Reports cough, Reports dyspnea, Denies cough with sputum, Denies excessive sputum, Denies hemoptysis, Denies home oxygen Gastrointestinal: Reports nausea, Reports vomiting, Denies abdominal pain, Denies diarrhea Genitourinary: Denies dysuria, Denies hematuria Musculoskeletal: Denies myalgias Integumentary: Denies pruritus, Denies rash Neurological: Denies numbness, Denies weakness Psychiatric: Denies anxiety, Denies depression Endocrine: Denies fatigue, Denies weight change Past Medical History Past Medical History: CVA/TIA, Diabetes Mellitus, Hypertension Additional Past Medical History / Comment(s): diabetes mellitus type 1 on insulin pump, chronic back and neck pain, blind in left eye, diabetic retinopathy, glaucoma History of Any Multi-Drug Resistant Organisms: None Reported Past Surgical History: Orthopedic Surgery, Tubal Ligation Additional Past Surgical History / Comment(s): bilateral intraocular lens implants, laser surgery on her left eye Past Anesthesia/Blood Transfusion Reactions: No Reported Reaction Past Psychological History: No Psychological Hx Reported Smoking Status: Former smoker Past Alcohol Use History: None Reported Additional Past Alcohol Use History / Comment(s): patient was a smoker one pack per day for 20 years and quit 15 years ago. She denies any medical marijuana, marijuana, street drug or alcohol use. She lives at home with her . Past Drug Use History: None Reported - Past Family History Mother Additional Family Medical History / Comment(s): Mother had history of irregular heartbeat. Father Additional Family Medical History / Comment(s): Father at age 44 from complications of diabetes. Sister(s) Additional Family Medical History / Comment(s): Patient has one sister diagnosed with brain cancer and survived. She has no history of diabetes. Patient does not have any brothers. Patient has 2 children that are not diabetic. Medications and Allergies Home Medications Medication Instructions Recorded Confirmed Type Latanoprost Ophth [Xalatan 0.005%] 1 drops BOTH EYES HS 11/03/16 09/06/17 History Valsartan [Diovan] 160 mg PO DAILY 11/03/16 09/06/17 History INSULIN LISPRO (For Pump) [humaLOG 0.01 units SQ-PUMP CONTINUOUS 09/06/17 History (For Pump)] Allergies Allergy/AdvReac Type Severity Reaction Status Date / Time codeine Allergy Nausea & Verified 09/06/17 21:30 Vomiting Physical Exam Vitals: Vital Signs Temp Pulse Pulse Resp BP Pulse Ox 09/07/17 13:00 95 12 122/56 100 09/07/17 12:00 98.3 F 90 16 102/37 98 09/07/17 11:00 92 18 121/45 99 09/07/17 10:30 92 17 116/49 99 09/07/17 10:00 93 22 116/49 99 09/07/17 09:00 93 17 118/40 100 09/07/17 08:00 98.5 F 94 17 134/55 99 09/07/17 07:30 96 20 108/45 99 09/07/17 07:03 100 09/07/17 07:00 94 17 108/45 99 09/07/17 06:30 97 22 121/42 99 09/07/17 06:00 94 17 121/42 100 09/07/17 05:30 96 18 109/42 100 09/07/17 05:00 95 15 109/42 100 09/07/17 04:30 95 16 108/55 100 09/07/17 04:00 97.2 F L 94 90 13 104/36 100 09/07/17 03:30 94 19 90/55 100 09/07/17 03:00 97.3 F L 91 17 101/39 100 09/07/17 02:30 96.6 F L 90 18 127/52 100 09/07/17 02:01 97.4 F L 90 17 100 09/07/17 02:00 92 18 150/65 100 09/07/17 01:00 94 18 128/58 100 09/07/17 00:00 84 139/61 09/06/17 23:30 92.2 F L 142/64 09/06/17 23:00 88 18 146/67 99 09/06/17 21:03 91 22 199/80 100 Intake and Output 09/07/17 09/07/17 09/07/17 06:59 14:59 22:59 Intake Total 1100 2118.433 Output Total 600 585 Balance 500 1533.433 Intake: IV 1100 1000 D5-0.45% NaCl with KCl 600 20Meq/l 1,000 ml @ 75 mls /hr IV .[id number] [facility] Rx#: [id number] Sodium Chloride 0.9% 1, 600 400 000 ml @ 200 mls/hr IV . Q5H DAVID Rx#:[id number] Sodium Chloride 0.9% 500 500 ml @ 999 mls/hr IV .Q31M STA Rx#:[id number] Intake, IV Titration 1118.433 Amount Insulin Regular 100 unit 118.433 In Sodium Chloride 0.9% 100 ml @ 0.1 UNITS/KG/HR 9.62 mls/hr IV .[id number] DAVID Rx#:[id number] Sodium Chloride 0.45% 1, 1000 000 ml @ 1000 mls/hr IV . Q1H ONE Rx#:[id number] Output: Urine 600 585 Other: Voiding Method Indwelling Catheter Indwelling Catheter Weight 92 kg 92 kg Patient Weight 09/08/17 06:59 Weight 92 kg Gen: This is a 62 year old obese female. She is sitting up in the ICU bed and appears to be comfortable. HEENT: Head is atraumatic, normocephalic. Pupils equal, round. Sclerae is anicteric. conjunctiva pink. Patient is edentulous NECK: Supple. No JVD. No lymphadenopathy. No thyromegaly. Trachea midline. LUNGS: Clear to auscultation. No wheezes or rhonchi. No intercostal retractions. HEART: Regular rate and rhythm. No murmur.monitoring specialist is a sinus rhythm. ABDOMEN: Obese. Soft. Bowel sounds are present. No masses. No tenderness.Merino catheter draining clear wilmer urine. EXTREMITIES: No pedal edema. No calf tenderness. NEUROLOGICAL: Patient is awake, alert and oriented x3. Cranial nerves 2 through 12 are grossly intact. SkinExamination of the skin revealed no evidence of significant rashes, suspicious appearing nevi or other concerning lesions. Psychiatric evaluation shows normal affect and mood. Results - Laboratory Findings CBC and BMP: 09/07/17 05:22 09/07/17 09:09 PT/INR, D-dimer PT 10.1 sec (9.0-12.0) 09/06/17 22:33 INR 1.0 (<1.2) 09/06/17 22:33 Abnormal lab findings: Abnormal Labs 09/06/17 09/06/17 09/06/17 20:02 20:02 20:02 WBC Hct MCV MCHC Neutrophils # Neutrophils # (Manual) Monocytes # Myelocytes # (Manual) APTT VBG pH VBG pCO2 VBG HCO3 Sodium Potassium 6.1 H Chloride Carbon Dioxide <5 L* BUN 36 H Creatinine 1.50 H Glucose 714 H* POC Glucose (mg/dL) Plasma Lactic Acid Galen 8.0 H* Phosphorus Magnesium 2.7 H Alkaline Phosphatase 149 H Troponin I 0.074 H* Urine Appearance Urine Protein Urine Glucose (UA) Urine Ketones Urine Blood 09/06/17 09/06/17 09/06/17 21:02 21:42 22:33 WBC 28.7 H* Hct 51.7 H MCV 101.2 H MCHC 27.2 L Neutrophils # Neutrophils # (Manual) 24.10 H Monocytes # Myelocytes # (Manual) 1.44 H APTT VBG pH 6.78 L* VBG pCO2 22 L VBG HCO3 3 L* Sodium Potassium Chloride Carbon Dioxide BUN Creatinine Glucose POC Glucose (mg/dL) >600 H Plasma Lactic Acid Galen Phosphorus Magnesium Alkaline Phosphatase Troponin I Urine Appearance Urine Protein Urine Glucose (UA) Urine Ketones Urine Blood 09/06/17 09/06/17 09/06/17 22:33 22:33 23:58 WBC Hct MCV MCHC Neutrophils # Neutrophils # (Manual) Monocytes # Myelocytes # (Manual) APTT 30.8 H VBG pH VBG pCO2 VBG HCO3 Sodium Potassium Chloride Carbon Dioxide BUN Creatinine Glucose POC Glucose (mg/dL) Plasma Lactic Acid Galen Phosphorus 10.9 H* Magnesium Alkaline Phosphatase Troponin I Urine Appearance Cloudy H Urine Protein 1+ H Urine Glucose (UA) 4+ H Urine Ketones 3+ H Urine Blood Small H 09/07/17 09/07/17 09/07/17 00:15 01:16 01:40 WBC Hct MCV MCHC Neutrophils # Neutrophils # (Manual) Monocytes # Myelocytes # (Manual) APTT VBG pH VBG pCO2 VBG HCO3 Sodium 146 H Potassium 5.3 H Chloride 112 H Carbon Dioxide <5 L* BUN 39 H Creatinine 1.40 H Glucose 619 H* POC Glucose (mg/dL) >600 H 556 H Plasma Lactic Acid Galen Phosphorus 6.2 H Magnesium Alkaline Phosphatase Troponin I Urine Appearance Urine Protein Urine Glucose (UA) Urine Ketones Urine Blood 09/07/17 09/07/17 09/07/17 01:40 02:28 03:06 WBC Hct MCV MCHC Neutrophils # Neutrophils # (Manual) Monocytes # Myelocytes # (Manual) APTT VBG pH VBG pCO2 VBG HCO3 Sodium Potassium Chloride Carbon Dioxide BUN Creatinine Glucose POC Glucose (mg/dL) 512 H 506 H Plasma Lactic Acid Galen 4.6 H* Phosphorus Magnesium Alkaline Phosphatase Troponin I Urine Appearance Urine Protein Urine Glucose (UA) Urine Ketones Urine Blood 09/07/17 09/07/17 09/07/17 04:02 05:07 05:22 WBC Hct MCV MCHC Neutrophils # Neutrophils # (Manual) Monocytes # Myelocytes # (Manual) APTT VBG pH VBG pCO2 VBG HCO3 Sodium 148 H Potassium Chloride 118 H Carbon Dioxide 8 L* BUN 38 H Creatinine 1.30 H Glucose 357 H POC Glucose (mg/dL) 394 H 409 H Plasma Lactic Acid Galen Phosphorus 1.9 L Magnesium 2.5 H Alkaline Phosphatase Troponin I Urine Appearance Urine Protein Urine Glucose (UA) Urine Ketones Urine Blood 09/07/17 09/07/17 09/07/17 05:22 06:09 06:57 WBC 23.0 H Hct MCV MCHC 29.8 L Neutrophils # 19.6 H Neutrophils # (Manual) Monocytes # 1.1 H Myelocytes # (Manual) APTT VBG pH VBG pCO2 VBG HCO3 Sodium Potassium Chloride Carbon Dioxide BUN Creatinine Glucose POC Glucose (mg/dL) 344 H 282 H Plasma Lactic Acid Galen Phosphorus Magnesium Alkaline Phosphatase Troponin I Urine Appearance Urine Protein Urine Glucose (UA) Urine Ketones Urine Blood 09/07/17 09/07/17 09/07/17 08:21 09:09 09:09 WBC Hct MCV MCHC Neutrophils # Neutrophils # (Manual) Monocytes # Myelocytes # (Manual) APTT VBG pH VBG pCO2 VBG HCO3 Sodium 149 H Potassium Chloride 122 H* Carbon Dioxide 17 L BUN 34 H Creatinine 1.09 H Glucose 254 H POC Glucose (mg/dL) 248 H Plasma Lactic Acid Galen Phosphorus 0.9 L* Magnesium Alkaline Phosphatase Troponin I 0.276 H* Urine Appearance Urine Protein Urine Glucose (UA) Urine Ketones Urine Blood 09/07/17 09/07/17 09/07/17 09:20 09:39 10:03 WBC Hct MCV MCHC Neutrophils # Neutrophils # (Manual) Monocytes # Myelocytes # (Manual) APTT VBG pH 7.28 L VBG pCO2 26 L VBG HCO3 12 L Sodium Potassium Chloride Carbon Dioxide BUN Creatinine Glucose POC Glucose (mg/dL) 264 H 222 H Plasma Lactic Acid Galen Phosphorus Magnesium Alkaline Phosphatase Troponin I Urine Appearance Urine Protein Urine Glucose (UA) Urine Ketones Urine Blood 09/07/17 09/07/17 11:11 12:47 WBC Hct MCV MCHC Neutrophils # Neutrophils # (Manual) Monocytes # Myelocytes # (Manual) APTT VBG pH VBG pCO2 VBG HCO3 Sodium Potassium Chloride Carbon Dioxide BUN Creatinine Glucose POC Glucose (mg/dL) 223 H 206 H Plasma Lactic Acid Galen Phosphorus Magnesium Alkaline Phosphatase Troponin I Urine Appearance Urine Protein Urine Glucose (UA) Urine Ketones Urine Blood - Diagnostic Findings Chest x-ray: image reviewed Assessment and Plan Plan: Assessment 1 acute diabetic ketoacidosis with severe anion gap metabolic acidosis, improved with fluid resuscitation and insulin drip. This morning anion gap is closing and the patient's bicarb level is up to 17. 2 acute gastroenteritis with increased nausea and emesis with intravascular volume depletion/dehydration due to inability to maintain with oral intake 3 lactic acidosis, recovered 4 electrodes imbalance, adjusted 5 acute kidney injury secondary to above, improving 6 diabetes mellitus type 1 7 hypertension 8 glucoma 9 diabetic retinopathy with blindness in the left eye 10 chronic back pain 11 acute leukocytosis secondary to above, improving, doubt infection and this is probably stress induced. Plan Tenderness in this patient to Levemir insulin along with a scale. May ultimately decision herself to an insulin pump on outpatient basis. Continue fluids and change IV fluids to D5 half normal state rate of 75 mL an hour when his diet as tolerated. Lovenox for DVT prophylaxis. IV Protonix. Zofran for nausea. We'll continue to follow.
[2017-09-07 16:26] VITALS: BMI 31.7
[2017-09-07 17:15] LABS: Glucose,Whole Blood 241 mg/dL (75-99)
[2017-09-07 20:10] LABS: Glucose,Whole Blood 265 mg/dL (75-99)
[2017-09-08 04:54] LABS: Basophils # (A) 0.1 k/uL (0-0.2); Basophils % (A) 0 %; Eosinophils % (A) 0 %; HCT 37.6 % (34.0-46.0); HGB 11.7 gm/dL (11.4-16.0); Hypochromasia Slight; Lymphocytes # (A) 2.3 k/uL (1.0-4.8); Lymphocytes % (A) 17 %; MCH 26.5 pg (25.0-35.0); MCHC 31.2 g/dL (31.0-37.0); Mean Platelet Volume 7.6; Monocytes # (A) 0.5 k/uL (0-1.0); Monocytes % (A) 4 %; Neutrophils # (A) 10.8 k/uL (1.3-7.7); Neutrophils % (A) 78 %; Platelet Count 282 k/uL (150-450); RBC 4.42 m/uL (3.80-5.40); RDW 14.6 % (11.5-15.5); WBC 13.9 k/uL (3.8-10.6)
[2017-09-08 05:14] LABS: Anion Gap 11 mmol/L; Blood Urea Nitrogen 20 mg/dL (7-17); Calcium 8.8 mg/dL (8.4-10.2); Carbon Dioxide 18 mmol/L (22-30); Chloride 117 mmol/L (98-107); Glucose 224 mg/dL (74-99); Magnesium 2.3 mg/dL (1.6-2.3); Phosphorus 2.2 mg/dL (2.5-4.5); Potassium 4.1 mmol/L (3.5-5.1); Sodium 146 mmol/L (137-145)
[2017-09-08 06:58] LABS: Glucose,Whole Blood 252 mg/dL (75-99)
[2017-09-08] MEDS: INSULIN ASPART 100 UNIT/ML 1 ML 10 ML VIAL SQ SCH ×2 (07:24)
[2017-09-08] MEDS: PANTOPRAZOLE 40 MG/10 ML VIAL IVP SCH (07:29)
[2017-09-08] MEDS: ENOXAPARIN 40 MG/0.4 ML SYRINGE SQ SCH (07:29)
[2017-09-08] MEDS ORDERED: INSULIN PUMP BASAL RATES 1 EACH MISC MISCELLANE PRN (10:33)
[2017-09-08] MEDS ORDERED: INSULIN ASPART 100 UNIT/ML 1 ML 10 ML VIAL SQ PRN (10:33)
[2017-09-08] MEDS ORDERED: INSPUCOR MISCELLANE PRN (10:33)
[2017-09-08] MEDS ORDERED: INSULIN PUMP TARGET GLUCOSE 1 EACH MISC MISCELLANE PRN (10:33)
[2017-09-08] MEDS ORDERED: INSULIN PUMP ACTIVE INSULIN 1 EACH MISC MISCELLANE PRN (10:33)
--- NOTE | 2017-09-08 12:24 | P.PN ---
<Alissa Munoz M - Last Filed: 09/08/17 12:13> Subjective Progress Note Date: 09/08/17 Principal diagnosis: Acute DKA, acute gastroenteritis, lactic acidosis, recovered Is a 62-year-old female patient, type I diabetic, who has been recently switched to an insulin pump by her bung sewer. The patient has been on a basal rate of 1.1 units an hour through her insulin pump. The patient stated that she developed what seemed to be a stomach flu few days ago. She settled having increased nausea and emesis and subsequently she noted that her blood sugars are quite elevated despite her being on an insulin pump. She started having a crease polyuria and polydipsia and she felt very lethargic and weak. She tried to keep up with her fluid intake however she was unable to. No diarrhea. No abdominal pain. No change in mental status. No cough or sputum production or chest tightness or wheezing. For all this reasons she presented emergency department which was found to have acute hyperglycemia with a sugar level of 714 with positive acetone. Her lipase level was normal. Her anion gap was elevated with a lactic acid level of 8 initially which subsequently came down to 1.1. Her acetone was positive. For this level of 10.9 with subsequently dropped down to 0.9. Troponin is a 0.07 and 0.276 respectively. The patient received a total of 3 L of IV fluids in form of a bolus and she started on an insulin drip. This morning her anion gap has closed and her bicarb level is up to 17 and her sugar levels are in the low 200s. She is alert and awake and she's able to tolerate some soft diet. No chest pain. No fever or chills per no aspiration. She has had previous history of CVA and she seems to have blindness in left eye. She seems to be compliant to her medications. She has had previous DKA in the past however none recently. On 09/08/2017 patient is doing very well, awake, alert, denies any acute distress. No further episodes of nausea or vomiting. She is tolerating fluid and food intake well. Her WBC is trending down and is down to 13.9 on today's blood work, hemoglobin is 11.7, serum sodium is down to 146, serum potassium is 4.1, chloride is 117, carbon dioxide is 18, anion gap is 11, B1 is 20, and creatinine is 0.8. Her blood sugars are in the 200s, yesterday patient was switched over from insulin drip to Levemir, mealtime Humalog and sliding scale. Today the rn diabetes educator is at the bedside, he is assisting the patient with reinitiating her insulin pump, patient has already given herself insulin bolus this morning for blood sugar of 252, and her basal rate of 1.15 units per hour will be initiated per previous settings. She remains afebrile, on room air with O2 sat at 98%. Hemodynamically stable. Lung sounds are clear to auscultation. Still complains of a lot of sore throat, oral cavity and posterior pharynx were inspected, no signs of exudate or redness noted. Is having occasional productive cough with production of small amount of white sputum. But no significant chest congestion noted. No wheezes, no rhonchi, no rales. No signs of respiratory distress. Patient has been ambulating within the room, tolerating activity very well. Remains in sinus mechanism with a controlled rate. Awaiting to be seen by cardiology in consultation for the mild troponin leak, she has denied any chest pain or pressure or shortness of breath during this admission. Does have a history of coronary artery disease. Objective - Vital Signs Vital signs: Vital Signs Temp 98.7 F 09/08/17 08:00 Pulse 88 09/08/17 10:00 Resp 17 09/08/17 10:00 BP 126/55 09/08/17 10:00 Pulse Ox 98 09/08/17 10:00 Intake & Output 09/07/17 09/08/17 09/08/17 18:59 06:59 18:59 Intake Total 2593.433 350 240 Output Total 950 770 225 Balance 1643.433 -420 15 Weight 92 kg 92.4 kg Intake: IV 1375 D5-0.45% NaCl with KCl 975 20Meq/l 1,000 ml @ 75 mls /hr IV .[id number] [facility] Rx#: [id number] Sodium Chloride 0.9% 1, 400 000 ml @ 200 mls/hr IV . Q5H [facility] Rx#:[id number] Intake, IV Titration 1118.433 Amount Insulin Regular 100 unit 118.433 In Sodium Chloride 0.9% 100 ml @ 0.1 UNITS/KG/HR 9.62 mls/hr IV .[id number] [facility] Rx#:[id number] Sodium Chloride 0.45% 1, 1000 000 ml @ 1000 mls/hr IV . Q1H ONE Rx#:[id number] Oral 100 350 240 Output: Urine 950 770 225 Other: Voiding Method Indwelling Catheter Indwelling Catheter Indwelling Catheter - Exam Gen: This is a 62 year old obese female. She is sitting up in the ICU bed and appears to be comfortable. HEENT: Head is atraumatic, normocephalic. Pupils equal, round. Sclerae is anicteric. conjunctiva pink. Patient is edentulous NECK: Supple. No JVD. No lymphadenopathy. No thyromegaly. Trachea midline. LUNGS: Clear to auscultation. No wheezes or rhonchi. No intercostal retractions. HEART: Regular rate and rhythm. No murmur.cardiac rehabilitation program director is a sinus rhythm. ABDOMEN: Obese. Soft. Bowel sounds are present. No masses. No tenderness.Merino catheter draining clear wilmer urine. EXTREMITIES: No pedal edema. No calf tenderness. NEUROLOGICAL: Patient is awake, alert and oriented x3. Cranial nerves 2 through 12 are grossly intact. SkinExamination of the skin revealed no evidence of significant rashes, suspicious appearing nevi or other concerning lesions. Psychiatric evaluation shows normal affect and mood. - Labs CBC & Chem 7: 09/08/17 04:25 09/08/17 04:25 Labs: Abnormal Lab Results - Last 24 Hours (Table) 09/06/17 09/07/17 09/07/17 Range/Units 21:02 05:22 12:47 WBC (3.8-10.6) k/uL Neutrophils # (1.3-7.7) k/uL Sodium (137-145) mmol/L Chloride (98-107) mmol/L Carbon Dioxide (22-30) mmol/L BUN (7-17) mg/dL Glucose (74-99) mg/dL POC Glucose (mg/dL) >600 H 206 H (75-99) mg/dL Hemoglobin A1c 8.8 H (4.0-6.0) % Phosphorus (2.5-4.5) mg/dL Troponin I (0.000-0.034) ng/mL 09/07/17 09/07/17 09/07/17 Range/Units 14:57 17:13 20:08 WBC (3.8-10.6) k/uL Neutrophils # (1.3-7.7) k/uL Sodium (137-145) mmol/L Chloride (98-107) mmol/L Carbon Dioxide (22-30) mmol/L BUN (7-17) mg/dL Glucose (74-99) mg/dL POC Glucose (mg/dL) 241 H 265 H (75-99) mg/dL Hemoglobin A1c (4.0-6.0) % Phosphorus (2.5-4.5) mg/dL Troponin I 0.378 H* (0.000-0.034) ng/mL 09/07/17 09/08/17 09/08/17 Range/Units 21:14 04:25 04:25 WBC 13.9 H (3.8-10.6) k/uL Neutrophils # 10.8 H (1.3-7.7) k/uL Sodium 146 H (137-145) mmol/L Chloride 117 H (98-107) mmol/L Carbon Dioxide 18 L (22-30) mmol/L BUN 20 H (7-17) mg/dL Glucose 224 H (74-99) mg/dL POC Glucose (mg/dL) (75-99) mg/dL Hemoglobin A1c (4.0-6.0) % Phosphorus 2.2 L (2.5-4.5) mg/dL Troponin I 0.340 H* (0.000-0.034) ng/mL 09/08/17 09/08/17 Range/Units 04:25 06:55 WBC (3.8-10.6) k/uL Neutrophils # (1.3-7.7) k/uL Sodium (137-145) mmol/L Chloride (98-107) mmol/L Carbon Dioxide (22-30) mmol/L BUN (7-17) mg/dL Glucose (74-99) mg/dL POC Glucose (mg/dL) 252 H (75-99) mg/dL Hemoglobin A1c (4.0-6.0) % Phosphorus (2.5-4.5) mg/dL Troponin I 0.267 H* (0.000-0.034) ng/mL Microbiology - Last 24 Hours (Table) 09/06/17 23:58 Urine Culture - Final Urine,Catheterized Assessment and Plan Plan: Assessment 1 acute diabetic ketoacidosis with severe anion gap metabolic acidosis, improved with fluid resuscitation and insulin drip. Recovered, current anion gap is 11. Insulin drip has been stopped, was initially switched over to Levemir and Humalog, today patient is reinitiating her insulin pump at her previous home settings. 2 acute gastroenteritis with increased nausea and emesis with intravascular volume depletion/dehydration due to inability to maintain with oral intake, recovered, patient has not had any any further episodes of nausea or vomiting. Tolerating oral fluid and food intake well. 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 12 hypernatremia, likely secondary to intravascular volume depletion related to intractable nausea and vomiting, and dehydration secondary to DKA. This has improved, serum sodium peaked at 149, and is currently down to 146. Patient is now able to tolerate food and fluid intake. This is anticipated to improve further. Plan Patient is doing well, hemodynamically stable. Anion gap is at 11, electrolytes are improving, serum sodium is improved to 146, patient has had no further episodes of emesis, tolerating food and fluid intake well. This is anticipated to normalize we'll of within the next 24 hours. Diabetic educators at the bedside, assisting the patient with reinitiating her insulin pump at her previous home settings. Levemir and NovoLog scale have been discontinued. Patient remains afebrile, urine culture showed no growth. On room air, with O2 sat at 98%. No specific complaints this morning. From pulmonary/critical care standpoint patient is stable to go out of ICU. I performed a history & physical examination of the patient and discussed their management with my nurse practitioner, Alissa Munoz. I reviewed the nurse practitioner's note and agree with the documented findings and plan of care. Lung sounds are clear, diminished at the bases. The findings and the impression was discussed with the patient. I attest to the documentation by the nurse practitioner. Time with Patient: Greater than 30 <Terra Caballero - Last Filed: 09/08/17 16:45> Objective - Vital Signs Vital signs: Vital Signs Temp 98.7 F 01/05/18 12:00 Pulse 85 09/08/17 13:00 Resp 29 H 09/08/17 13:00 BP 177/66 09/08/17 12:00 Pulse Ox 95 09/08/17 12:00 Intake & Output 09/07/17 09/08/17 09/08/17 18:59 06:59 18:59 Intake Total 2593.433 350 240 Output Total 950 770 225 Balance 1643.433 -420 15 Weight 92 kg 92.4 kg Intake: IV 1375 D5-0.45% NaCl with KCl 975 20Meq/l 1,000 ml @ 75 mls /hr IV .[id number] [facility] Rx#: [id number] Sodium Chloride 0.9% 1, 400 000 ml @ 200 mls/hr IV . Q5H [facility] Rx#:[id number] Intake, IV Titration 1118.433 Amount Insulin Regular 100 unit 118.433 In Sodium Chloride 0.9% 100 ml @ 0.1 UNITS/KG/HR 9.62 mls/hr IV .[id number] [facility] Rx#:[id number] Sodium Chloride 0.45% 1, 1000 000 ml @ 1000 mls/hr IV . Q1H [facility] Rx#:[id number] Oral 100 350 240 Output: Urine 950 770 225 Other: Voiding Method Indwelling Catheter Indwelling Catheter Indwelling Catheter - Labs CBC & Chem 7: 09/08/17 04:25 09/08/17 04:25 Labs: Abnormal Lab Results - Last 24 Hours (Table) 09/07/17 09/07/17 09/07/17 Range/Units 17:13 20:08 21:14 WBC (3.8-10.6) k/uL Neutrophils # (1.3-7.7) k/uL Sodium (137-145) mmol/L Chloride (98-107) mmol/L Carbon Dioxide (22-30) mmol/L BUN (7-17) mg/dL Glucose (74-99) mg/dL POC Glucose (mg/dL) 241 H 265 H (75-99) mg/dL Phosphorus (2.5-4.5) mg/dL Troponin I 0.340 H* (0.000-0.034) ng/mL 09/08/17 09/08/17 09/08/17 Range/Units 04:25 04:25 04:25 WBC 13.9 H (3.8-10.6) k/uL Neutrophils # 10.8 H (1.3-7.7) k/uL Sodium 146 H (137-145) mmol/L Chloride 117 H (98-107) mmol/L Carbon Dioxide 18 L (22-30) mmol/L BUN 20 H (7-17) mg/dL Glucose 224 H (74-99) mg/dL POC Glucose (mg/dL) (75-99) mg/dL Phosphorus 2.2 L (2.5-4.5) mg/dL Troponin I 0.267 H* (0.000-0.034) ng/mL 09/08/17 Range/Units 06:55 WBC (3.8-10.6) k/uL Neutrophils # (1.3-7.7) k/uL Sodium (137-145) mmol/L Chloride (98-107) mmol/L Carbon Dioxide (22-30) mmol/L BUN (7-17) mg/dL Glucose (74-99) mg/dL POC Glucose (mg/dL) 252 H (75-99) mg/dL Phosphorus (2.5-4.5) mg/dL Troponin I (0.000-0.034) ng/mL Microbiology - Last 24 Hours (Table) 09/06/17 23:58 Urine Culture - Final Urine,Catheterized Assessment and Plan Plan: This is a joint evaluation that was done along with nurse practitioner. The patient will be started back on her insulin pump. The patient is tolerating her diet. Blood sugar is being monitored. Anion gap metabolic acidosis close. Acute kidney injury is recovered. We'll continue to follow. Note that the hyponatremia is also improving and the patient's sodium level is down to 146. The patient did have a mild troponin leak and cardiology will be asked to evaluate this patient.
[2017-09-08] MEDS: INSULIN PUMP MEAL BOLUS 1 UNIT MISC MISCELLANE SCH ×3 (13:18→22:46)
--- NOTE | 2017-09-08 13:24 | P.PN ---
Subjective Progress Note Date: 09/08/17 This is a 62-year-old female patient of Dr. Cantu with past medical history of diabetes mellitus type 1 diagnosed at age 23, hypertension, chronic back and neck pain, or coma and diabetic retinopathy and remote history of tobacco use. Patient states that she thought she had the stomach flu sudden onset yesterday. She was feeling weak and lethargic along with a cough and vomiting every 30 minutes. She tried to drink water, flavored water, apple juice but continued to vomit. She had no food intake. She follows with millwright instructor Dr. Gibson at the [facility] and is on an insulin pump which she has had for years. She states she has never had DKA in the past. Her blood sugar at the lowest at home yesterday was 425 but climbing higher. She came into [facility] emergency center and was found have a blood sugar of 714, positive acetone, influenza negative, lipase negative, sodium was 143 and potassium 6.1, BUN 36 creatinine 1.5. Her initial lactic acid was 8 with repeat at 1.1. Phosphorus initially 10.9 with repeat is 0.9. Initial troponin was 0.07 for repeat was 0.276. Initial venous blood gas was pH 6.78, CO2 22 and bicarb 3. Urinalysis was cloudy, nitrate and leukoesterase negative. She was given 3 L IV fluid bolus, sodium bicarb,and insulin drip was started. she has not required vasopressors.Patient was admitted into intensive care unit and consult requested with Dr. Caballero for intensive care management. Subsequently, consult with cardiology added for elevated troponin. Urine culture is in progress and hemoglobin A1c is in progress. Patient has requested to be no CODE STATUS. Patient does state that she follows with an eye doctor and foot doctor on a regular basis. Patient's is to bring in her insulin pump from home. 09/08: Patient remains in intensive care unit but she has been hemodynamically stable. Patient will be transferred to [facility] today. Merino catheter to be discontinued. Patient denies having any nausea, vomiting or diarrhea. Blood sugars are now in the 200s and patient will be transitioned to her own pump. Dez from diabetic education will be helping her with this. Discussed follow- up with endocrinology and patient is willing to see Dr. El Solomon versus going to [facility]. Repeat troponins are 0.340 and 0.267. Cardiology consult is pending. Echocardiogram report is pending but verbally reported EF is normal. Objective - Vital Signs Vital signs: Vital Signs Temp 98.7 F 09/08/17 08:00 Pulse 89 09/08/17 09:00 Resp 14 09/08/17 09:00 BP 126/55 09/08/17 09:00 Pulse Ox 98 09/08/17 09:00 Intake & Output 09/07/17 09/08/17 09/08/17 18:59 06:59 18:59 Intake Total 2593.433 350 240 Output Total 950 770 225 Balance 1643.433 -420 15 Weight 92 kg 92.4 kg Intake: IV 1375 D5-0.45% NaCl with KCl 975 20Meq/l 1,000 ml @ 75 mls /hr IV .[id number] [facility] Rx#: [id number] Sodium Chloride 0.9% 1, 400 000 ml @ 200 mls/hr IV . Q5H [facility] Rx#:[id number] Intake, IV Titration 1118.433 Amount Insulin Regular 100 unit 118.433 In Sodium Chloride 0.9% 100 ml @ 0.1 UNITS/KG/HR 9.62 mls/hr IV .[id number] [facility] Rx#:[id number] Sodium Chloride 0.45% 1, 1000 000 ml @ 1000 mls/hr IV . Q1H ONE Rx#:[id number] Oral 100 350 240 Output: Urine 950 770 225 Other: Voiding Method Indwelling Catheter Indwelling Catheter Indwelling Catheter - Exam Gen: This is a 62 year old obese female. She is sitting up in the ICU bed and appears to be comfortable. HEENT: Head is atraumatic, normocephalic. Pupils equal, round. Sclerae is anicteric. conjunctiva pink. NECK: Supple. No JVD. No lymphadenopathy. No thyromegaly. Trachea midline. LUNGS: Clear to auscultation. No wheezes or rhonchi. No intercostal retractions. HEART: Regular rate and rhythm. No murmur.cardiac surgeon is a sinus rhythm. ABDOMEN: Obese. Soft. Bowel sounds are present. No masses. No tenderness.Merino catheter draining clear wilmer urine. EXTREMITIES: No pedal edema. No calf tenderness. NEUROLOGICAL: Patient is awake, alert and oriented x3. Cranial nerves 2 through 12 are grossly intact. - Labs CBC & Chem 7: 09/08/17 04:25 09/08/17 04:25 Labs: Abnormal Lab Results - Last 24 Hours (Table) 09/06/17 09/07/17 09/07/17 Range/Units 21:02 05:22 09:09 WBC (3.8-10.6) k/uL Neutrophils # (1.3-7.7) k/uL VBG pH (7.31-7.41) VBG pCO2 (37-51) mmHg VBG HCO3 (24-28) mmol/L Sodium 149 H (137-145) mmol/L Chloride 122 H* (98-107) mmol/L Carbon Dioxide 17 L (22-30) mmol/L BUN 34 H (7-17) mg/dL Creatinine 1.09 H (0.52-1.04) mg/dL Glucose 254 H (74-99) mg/dL POC Glucose (mg/dL) >600 H (75-99) mg/dL Hemoglobin A1c 8.8 H (4.0-6.0) % Phosphorus 0.9 L* (2.5-4.5) mg/dL Troponin I (0.000-0.034) ng/mL 09/07/17 09/07/17 09/07/17 Range/Units 09:09 09:39 10:03 WBC (3.8-10.6) k/uL Neutrophils # (1.3-7.7) k/uL VBG pH 7.28 L (7.31-7.41) VBG pCO2 26 L (37-51) mmHg VBG HCO3 12 L (24-28) mmol/L Sodium (137-145) mmol/L Chloride (98-107) mmol/L Carbon Dioxide (22-30) mmol/L BUN (7-17) mg/dL Creatinine (0.52-1.04) mg/dL Glucose (74-99) mg/dL POC Glucose (mg/dL) 222 H (75-99) mg/dL Hemoglobin A1c (4.0-6.0) % Phosphorus (2.5-4.5) mg/dL Troponin I 0.276 H* (0.000-0.034) ng/mL 09/07/17 09/07/17 09/07/17 Range/Units 11:11 12:47 14:57 WBC (3.8-10.6) k/uL Neutrophils # (1.3-7.7) k/uL VBG pH (7.31-7.41) VBG pCO2 (37-51) mmHg VBG HCO3 (24-28) mmol/L Sodium (137-145) mmol/L Chloride (98-107) mmol/L Carbon Dioxide (22-30) mmol/L BUN (7-17) mg/dL Creatinine (0.52-1.04) mg/dL Glucose (74-99) mg/dL POC Glucose (mg/dL) 223 H 206 H (75-99) mg/dL Hemoglobin A1c (4.0-6.0) % Phosphorus (2.5-4.5) mg/dL Troponin I 0.378 H* (0.000-0.034) ng/mL 09/07/17 09/07/17 09/07/17 Range/Units 17:13 20:08 21:14 WBC (3.8-10.6) k/uL Neutrophils # (1.3-7.7) k/uL VBG pH (7.31-7.41) VBG pCO2 (37-51) mmHg VBG HCO3 (24-28) mmol/L Sodium (137-145) mmol/L Chloride (98-107) mmol/L Carbon Dioxide (22-30) mmol/L BUN (7-17) mg/dL Creatinine (0.52-1.04) mg/dL Glucose (74-99) mg/dL POC Glucose (mg/dL) 241 H 265 H (75-99) mg/dL Hemoglobin A1c (4.0-6.0) % Phosphorus (2.5-4.5) mg/dL Troponin I 0.340 H* (0.000-0.034) ng/mL 09/08/17 09/08/17 09/08/17 Range/Units 04:25 04:25 04:25 WBC 13.9 H (3.8-10.6) k/uL Neutrophils # 10.8 H (1.3-7.7) k/uL VBG pH (7.31-7.41) VBG pCO2 (37-51) mmHg VBG HCO3 (24-28) mmol/L Sodium 146 H (137-145) mmol/L Chloride 117 H (98-107) mmol/L Carbon Dioxide 18 L (22-30) mmol/L BUN 20 H (7-17) mg/dL Creatinine (0.52-1.04) mg/dL Glucose 224 H (74-99) mg/dL POC Glucose (mg/dL) (75-99) mg/dL Hemoglobin A1c (4.0-6.0) % Phosphorus 2.2 L (2.5-4.5) mg/dL Troponin I 0.267 H* (0.000-0.034) ng/mL 09/08/17 Range/Units 06:55 WBC (3.8-10.6) k/uL Neutrophils # (1.3-7.7) k/uL VBG pH (7.31-7.41) VBG pCO2 (37-51) mmHg VBG HCO3 (24-28) mmol/L Sodium (137-145) mmol/L Chloride (98-107) mmol/L Carbon Dioxide (22-30) mmol/L BUN (7-17) mg/dL Creatinine (0.52-1.04) mg/dL Glucose (74-99) mg/dL POC Glucose (mg/dL) 252 H (75-99) mg/dL Hemoglobin A1c (4.0-6.0) % Phosphorus (2.5-4.5) mg/dL Troponin I (0.000-0.034) ng/mL Microbiology - Last 24 Hours (Table) 09/06/17 23:58 Urine Culture - Preliminary Urine,Catheterized Assessment and Plan Plan: 1. DKA in a patient with history of diabetes mellitus type 1 diagnosed at age 23, on insulin pump. Levemir 15 units and NovoLog scale as well as NovoLog scheduled for units 3 times daily with meals will be physician to her insulin pump. Dr. Caballero is on consult for intensive care management. Patient to be transferred out of intensive care unit. 2. Electrolyte abnormalities: Hyperkalemia, hypernatremia, hyperchloremia, hypophosphatemia. For now fluid bolus of 0.45 normal saline. Continue to monitor and replace as indicated. 3. Elevated troponin but no clear chest pain. Echocardiogram and cardiology consult requested. 4. Acute kidney injury secondary to dehydration and significant nausea and vomiting. Continue to monitor kidney function. Avoid nephrotoxic agents. 5. Hypertension. Patient is on Diovan 60 mg daily. 6. Glaucoma, diabetic retinopathy and blindness in the left eye. Continue eyedrops. 7. Chronic back and neck pain, stable. 8. DVT prophylaxis. Lovenox. 9. Gastric intestinal prophylaxis. Protonix. CODE STATUS: No code per patient Patient will be admitted to the hospital for a minimum of 2 night stay. Discharge plan: return home Impression and plan of care have been directed as dictated by the signing physician. Radha Hdez nurse practitioner acting as scribe for signing physician.
[2017-09-08] MEDS: VALSARTAN 160 MG TAB PO SCH (13:27)
[2017-09-08] MEDS: INSULIN DETEMIR 100 UNIT/ML 10 ML VIAL SQ SCH (13:35)
--- NOTE | 2017-09-08 16:53 | ECHOF ---
Referral Reason:LVF MEASUREMENTS -------- HEIGHT: 170.2 cm WEIGHT: 91.6 kg BP: 122/56 IVSd: 1.1 cm (0.6 - 1.1) LVIDd: 3.1 cm (3.9 - 5.3) LVPWd: 1.3 cm (0.6 - 1.1) EDV(Teich): 39 ml IVSs: 1.7 cm LVIDs: 1.3 cm LVPWs: 1.7 cm %IVS Thck: 56 % ESV(Teich): 4 ml EF(Teich): 89 % %FS: 58 % SV(Teich): 35 ml Ao Diam: 2.6 cm (2.0 - 3.7) LA Diam: 2.8 cm (2.7 - 3.8) AV Cusp: 1.6 cm (1.5 - 2.6) EPSS: 0.2 cm MV E Bennett: 0.90 m/s MV DecT: 195 ms MV Dec Pleasants: 4.6 m/s MV A Bennett: 0.73 m/s MV E/A Ratio: 1.24 MV PHT: 57 ms MR Vmax: 1.97 m/s MR maxP.55 mmHg AV Vmax: 1.59 m/s AV maxP.14 mmHg TR Vmax: 1.62 m/s TR maxP.56 mmHg RAP: 5.00 mmHg RVSP: 15.56 mmHg MV EF SLOPE: 62.90 mm/s (70 - 150) MV EXCURSION: 14.64 mm (> 18.000) FINDINGS -------- Sinus rhythm. This was a technically adequate study. The left ventricular size is normal. There is mild concentric left ventricular hypertrophy. Overa ll left ventricular systolic function is normal with, an EF between 55 - 60 %. The right ventricle is normal in size and function. The left atrium is normal in size. The right atrium is normal in size. The aortic valve is trileaflet, and appears structurally normal. No aortic stenosis or regurgitation. There is trace mitral regurgitation. Trace tricuspid regurgitation present. The right ventricular systolic pressure, as measured by Dopp ler, is 15.56mmHg. Pulmonic valve appears structurally normal. The aortic root, ascending aorta and aortic arch are normal. The pericardium is normal. CONCLUSIONS -------- 1. Sinus rhythm. 2. This was a technically adequate study. 3. The left ventricular size is normal. 4. There is mild concentric left ventricular hypertrophy. 5. Overall left ventricular systolic function is normal with, an EF between 55 - 60 %. 6. The right ventricle is normal in size and function. 7. The left atrium is normal in size. 8. The right atrium is normal in size. 9. The aortic valve is trileaflet, and appears structurally normal. No aortic stenosis or regurgitati on. 10. There is trace mitral regurgitation. 11. Trace tricuspid regurgitation present. 12. The right ventricular systolic pressure, as measured by Doppler, is 15.56mmHg. 13. Pulmonic valve appears structurally normal. 14. The aortic root, ascending aorta and aortic arch are normal. 15. The pericardium is normal. GOGGLES ASSEMBLER: Era Romero RDCS
[2017-09-08] MEDS: METOPROLOL TARTRATE 12.5 MG TAB PO SCH (17:12)
[2017-09-08 17:22] LABS: Glucose,Whole Blood 126 mg/dL (75-99)
--- NOTE | 2017-09-08 17:44 | P.CRDCN ---
History of Present Illness Consult date: 09/08/17 Chief complaint: Generalized weakness History of present illness: This is a pleasant 62-year-old female patient with a past medical history significant for diabetes on insulin, as well as hypertension who was admitted to the intensive care unit earlier today with diabetes ketoacidosis. The patient had some a change in her insulin doses recently. Over the last few days she has been feeling weak and tired as well as she was experiencing polyuria and polydipsia. She noticed that her glucose was quite elevated. She did not have any symptoms of chest pain or discomfort nor shortness of breath. No change in mental status. No dizziness or lightheadedness or syncope. The patient was diagnosed with diabetes ketoacidosis and she was admitted to the intensive care unit and started on IV fluid and concern. We get involved in the care of the patient because her cardiac enzymes were checked and came in to be slightly abnormal but do not consistent with acute myocardial infarction. The EKG did not show any significant changes but it did show some nonspecific changes. The patient is not aware of any prior history of coronary artery disease and she never seen any advanced nursing professor in the past. More importantly she did not have any symptoms of chest pain or chest discomfort. She underwent an echocardiogram which revealed normal LV function without any significant valvular abnormalities. At this point I would consider a conservative medical approach. As an outpatient she needs to be ruled out for severe underlying CAD. I am going to add aspirin as well as metoprolol to the current medical treatment. We'll continue following up with her. Past Medical History Past Medical History: CVA/TIA, Diabetes Mellitus, Hypertension Additional Past Medical History / Comment(s): diabetes mellitus type 1 on insulin pump, chronic back and neck pain, blind in left eye, diabetic retinopathy, glaucoma History of Any Multi-Drug Resistant Organisms: None Reported Past Surgical History: Orthopedic Surgery, Tubal Ligation Additional Past Surgical History / Comment(s): bilateral intraocular lens implants, laser surgery on her left eye Past Anesthesia/Blood Transfusion Reactions: No Reported Reaction Past Psychological History: No Psychological Hx Reported Smoking Status: Former smoker Past Alcohol Use History: None Reported Additional Past Alcohol Use History / Comment(s): patient was a smoker one pack per day for 20 years and quit 15 years ago. She denies any medical marijuana, marijuana, street drug or alcohol use. She lives at home with her . Past Drug Use History: None Reported - Past Family History Mother Additional Family Medical History / Comment(s): Mother had history of irregular heartbeat. Father Additional Family Medical History / Comment(s): Father at age 44 from complications of diabetes. Sister(s) Additional Family Medical History / Comment(s): Patient has one sister diagnosed with brain cancer and survived. She has no history of diabetes. Patient does not have any brothers. Patient has 2 children that are not diabetic. Medications and Allergies Home Medications Medication Instructions Recorded Confirmed Type Latanoprost Ophth [Xalatan 0.005%] 1 drops BOTH EYES HS 11/03/16 09/06/17 History Valsartan [Diovan] 160 mg PO DAILY 11/03/16 09/06/17 History INSULIN LISPRO (For Pump) [humaLOG 0.01 units SQ-PUMP CONTINUOUS 09/06/17 History (For Pump)] Allergies Allergy/AdvReac Type Severity Reaction Status Date / Time codeine Allergy Nausea & Verified 09/06/17 21:30 Vomiting Physical Exam Vitals: Vital Signs Temp Pulse Resp BP Pulse Ox 09/08/17 13:00 85 29 H 09/08/17 12:00 98.7 F 83 16 177/66 95 09/08/17 10:00 88 17 126/55 98 09/08/17 09:00 89 14 126/55 98 09/08/17 08:00 98.7 F 94 25 H 180/59 99 09/08/17 07:00 88 18 165/60 99 09/08/17 06:00 85 15 141/58 99 09/08/17 05:00 87 16 145/56 98 09/08/17 04:00 98.2 F 86 13 110/50 96 09/08/17 03:00 86 15 113/55 96 09/08/17 02:00 87 16 129/52 96 09/08/17 01:00 88 15 118/62 97 09/08/17 00:00 98.5 F 86 14 108/53 97 09/07/17 23:00 92 15 105/41 97 09/07/17 22:00 95 16 146/59 100 09/07/17 21:59 95 18 146/59 99 09/07/17 21:00 90 17 105/65 97 09/07/17 20:00 99 F 90 18 119/71 100 09/07/17 19:00 92 17 134/50 99 09/07/17 18:00 92 16 141/47 100 Intake and Output 09/08/17 09/08/17 09/08/17 06:59 14:59 22:59 Intake Total 240 Output Total 470 225 Balance -470 15 Intake: Oral 240 Output: Urine 470 225 Other: Voiding Method Indwelling Catheter Indwelling Catheter Weight 92.4 kg - Constitutional General appearance: no acute distress - Respiratory Respiratory: bilateral: CTA - Cardiovascular Rhythm: regular Heart sounds: normal: S1, S2 Results 09/08/17 04:25 09/08/17 04:25 Cardiac Enzymes 09/07/17 09/08/17 Range/Units 21:14 04:25 Troponin I 0.340 H* 0.267 H* (0.000-0.034) ng/mL CBC 09/08/17 Range/Units 04:25 WBC 13.9 H (3.8-10.6) k/uL RBC 4.42 (3.80-5.40) m/uL Hgb 11.7 (11.4-16.0) gm/dL Hct 37.6 (34.0-46.0) % Plt Count 282 (150-450) k/uL Comprehensive Metabolic Panel 09/08/17 Range/Units 04:25 Sodium 146 H (137-145) mmol/L Potassium 4.1 (3.5-5.1) mmol/L Chloride 117 H (98-107) mmol/L Carbon Dioxide 18 L (22-30) mmol/L BUN 20 H (7-17) mg/dL Creatinine 0.80 (0.52-1.04) mg/dL Glucose 224 H (74-99) mg/dL Calcium 8.8 (8.4-10.2) mg/dL Current Medications Generic Name Dose Route Start Last Admin Trade Name Freq PRN Reason Stop Dose Admin Aspirin 325 mg 09/09/17 09:00 Aspirin PO DAILY DAVID Enoxaparin Sodium 40 mg 09/07/17 09:00 09/08/17 07:29 Lovenox SQ 40 mg DAILY DAVID Administration Insulin Aspart 0 unit 09/08/17 10:33 Novolog SQ DAILY PRN Insulin Pump Replacement Metoprolol Tartrate 12.5 mg 09/08/17 21:00 09/08/17 17:12 Lopressor PO 12.5 mg BID DAVID Administration Miscellaneous Information 1 each 09/08/17 10:33 Insulin Pump Active Insulin MISCELLANE ACHS PRN Blood Sugar - High Protocol Miscellaneous Information 1 each 09/08/17 10:33 Insulin Pump Basal Rates MISCELLANE Q6HR PRN Blood Sugar - High Protocol Miscellaneous Information 0 unit 09/08/17 10:33 Insulin Pump Correction Bolus MISCELLANE ACHS PRN Blood Sugar - High Protocol Miscellaneous Information 0 unit 09/08/17 12:30 09/08/17 13:18 Insulin Pump Meal Bolus MISCELLANE 5.2 unit ACHS DAVID Administration Protocol Miscellaneous Information 1 each 09/08/17 10:33 Insulin Pump Target Glucose MISCELLANE ACHS PRN Blood Sugar - High Protocol Morphine Sulfate 4 mg 09/06/17 22:35 Morphine Sulfate IVP Q4HR PRN Pain/Discomfort Naloxone HCl 0.2 mg 09/07/17 04:28 Narcan IV Q2M PRN Opioid Reversal Pantoprazole Sodium 40 mg 09/09/17 09:00 Protonix PO DAILY DAVID Valsartan 160 mg 09/08/17 13:30 09/08/17 13:27 Diovan PO 160 mg DAILY DAVID Administration Intake and Output 09/08/17 09/08/17 09/08/17 06:59 14:59 22:59 Intake Total 240 Output Total 470 225 Balance -470 15 Intake: Oral 240 Output: Urine 470 225 Other: Voiding Method Indwelling Catheter Indwelling Catheter Weight 92.4 kg 09/08/17 04:25 09/08/17 04:25 Assessment and Plan Assessment: Assessment #1 diabetes ketoacidosis #2 acute renal failure which has improved #3 hypertension #4 mildly abnormal cardiac enzymes does not consistent with acute myocardial infarction Plan #1 conservative medical approach at this point of time. #2 add aspirin and metoprolol to the current medical treatment #3 the echocardiogram was reviewed #4 follow-up with the patient. Thank you for allowing us participate in her care
[2017-09-08 22:15] LABS: Glucose,Whole Blood 135 mg/dL (75-99)
[2017-09-09 07:21] LABS: Glucose,Whole Blood 45 mg/dL (75-99)
[2017-09-09 07:21] LABS: Glucose,Whole Blood 44 mg/dL (75-99)
[2017-09-09 07:39] LABS: Glucose,Whole Blood 82 mg/dL (75-99)
[2017-09-09] MEDS: ENOXAPARIN 40 MG/0.4 ML SYRINGE SQ SCH (07:52)
[2017-09-09] MEDS: INSULIN PUMP MEAL BOLUS 1 UNIT MISC MISCELLANE SCH ×4 (07:52→21:23)
[2017-09-09] MEDS: ASPIRIN 325 MG TAB PO SCH (07:52)
[2017-09-09] MEDS: PANTOPRAZOLE 40 MG TABLET PO SCH (07:53)
[2017-09-09] MEDS: VALSARTAN 160 MG TAB PO SCH (07:53)
[2017-09-09] MEDS: METOPROLOL TARTRATE 12.5 MG TAB PO SCH ×2 (07:53→21:19)
[2017-09-09 08:26] LABS: Basophils # (A) 0.1 k/uL (0-0.2); Basophils % (A) 1 %; Eosinophils % (A) 0 %; HCT 39.2 % (34.0-46.0); HGB 12.3 gm/dL (11.4-16.0); Lymphocytes # (A) 2.5 k/uL (1.0-4.8); Lymphocytes % (A) 30 %; MCH 26.4 pg (25.0-35.0); MCHC 31.4 g/dL (31.0-37.0); MCV 84.1 fL (80.0-100.0); Mean Platelet Volume 7.3; Monocytes # (A) 0.4 k/uL (0-1.0); Monocytes % (A) 4 %; Neutrophils # (A) 5.2 k/uL (1.3-7.7); Neutrophils % (A) 63 %; Platelet Count 296 k/uL (150-450); RBC 4.66 m/uL (3.80-5.40); RDW 14.4 % (11.5-15.5); WBC 8.2 k/uL (3.8-10.6)
[2017-09-09 08:54] LABS: Anion Gap 11 mmol/L; Blood Urea Nitrogen 13 mg/dL (7-17); Calcium 8.9 mg/dL (8.4-10.2); Carbon Dioxide 26 mmol/L (22-30); Chloride 109 mmol/L (98-107); Glucose 109 mg/dL (74-99); Magnesium 2.1 mg/dL (1.6-2.3); Phosphorus 3.6 mg/dL (2.5-4.5); Sodium 146 mmol/L (137-145)
[2017-09-09 08:55] LABS: Potassium 3.6 mmol/L (3.5-5.1)
[2017-09-09 11:31] LABS: Glucose,Whole Blood 222 mg/dL (75-99)
--- NOTE | 2017-09-09 11:42 | P.PN ---
Subjective Progress Note Date: 09/09/17 patient continued to be hemodynamically stable overnight but her glucoses was 44 and 45 2 times in the but patient was asymptomatic. Patient is using her insulin pump at this point and I discussed with the patient and her who is at the bedside current condition in details. Patient is denying chest pain, shortness breath, nausea, vomiting, abdominal pain, dizziness, lightheadedness or blurry vision. Patient is feeling improved overall Objective - Vital Signs Vital signs: Vital Signs Temp 97.6 F 09/09/17 07:00 Pulse 86 09/09/17 07:00 Resp 16 09/09/17 07:00 BP 163/81 09/09/17 07:00 Pulse Ox 96 09/09/17 07:00 Intake & Output 09/08/17 09/09/17 09/09/17 18:59 06:59 18:59 Intake Total 240 Output Total 225 Balance 15 Weight 92.533 kg Intake: Oral 240 Output: Urine 225 Other: Voiding Method Indwelling Catheter Toilet # Voids 2 2 - Exam lungs clear to auscultation bilaterally Heart normal S1-S2 Abdomen soft nontender illness plus plus sounds are for quadrant Lower extremity no edema Psych alert and oriented 3 Embolex mood and affect neuro no focal deficit - Labs CBC & Chem 7: 09/09/17 07:58 09/09/17 07:58 Labs: Abnormal Lab Results - Last 24 Hours (Table) 09/08/17 09/08/17 09/09/17 Range/Units 17:20 22:14 07:12 Sodium (137-145) mmol/L Chloride (98-107) mmol/L Glucose (74-99) mg/dL POC Glucose (mg/dL) 126 H 135 H 45 L (75-99) mg/dL 09/09/17 09/09/17 09/09/17 Range/Units 07:13 07:58 11:27 Sodium 146 H (137-145) mmol/L Chloride 109 H (98-107) mmol/L Glucose 109 H (74-99) mg/dL POC Glucose (mg/dL) 44 L 222 H (75-99) mg/dL Microbiology - Last 24 Hours (Table) 09/06/17 23:58 Urine Culture - Final Urine,Catheterized Assessment and Plan Assessment: 1. DKA resolved. 2. 2 episodes of hypoglycemia but patient is asymptomatic I discussed with the nursing staff to remove insulin pump if patient's continued to be hypoglycemic even if she is still asymptomatic and patient is agreeable to the current treatment plan and would continue insulin sliding scale at that point and encourage oral intake. 3. Elevated troponin. Cardiology would like to follow-up outpatient's no intervention at this point. 4. Acute kidney injury related to dehydration would continue gentle hydration encourage oral intake area 5. Hypertension. Continue home medication. Discharge planning based on clinical progress
--- NOTE | 2017-09-09 13:22 | P.PN ---
Subjective Progress Note Date: 09/09/17 Principal diagnosis: Acute DKA, acute gastroenteritis, lactic acidosis, recovered Is a 62-year-old female patient, type I diabetic, who has been recently switched to an insulin pump by her coping machine operator. The patient has been on a basal rate of 1.1 units an hour through her insulin pump. The patient stated that she developed what seemed to be a stomach flu few days ago. She settled having increased nausea and emesis and subsequently she noted that her blood sugars are quite elevated despite her being on an insulin pump. She started having a crease polyuria and polydipsia and she felt very lethargic and weak. She tried to keep up with her fluid intake however she was unable to. No diarrhea. No abdominal pain. No change in mental status. No cough or sputum production or chest tightness or wheezing. For all this reasons she presented emergency department which was found to have acute hyperglycemia with a sugar level of 714 with positive acetone. Her lipase level was normal. Her anion gap was elevated with a lactic acid level of 8 initially which subsequently came down to 1.1. Her acetone was positive. For this level of 10.9 with subsequently dropped down to 0.9. Troponin is a 0.07 and 0.276 respectively. The patient received a total of 3 L of IV fluids in form of a bolus and she started on an insulin drip. This morning her anion gap has closed and her bicarb level is up to 17 and her sugar levels are in the low 200s. She is alert and awake and she's able to tolerate some soft diet. No chest pain. No fever or chills per no aspiration. She has had previous history of CVA and she seems to have blindness in left eye. She seems to be compliant to her medications. She has had previous DKA in the past however none recently. On 09/08/2017 patient is doing very well, awake, alert, denies any acute distress. No further episodes of nausea or vomiting. She is tolerating fluid and food intake well. Her WBC is trending down and is down to 13.9 on today's blood work, hemoglobin is 11.7, serum sodium is down to 146, serum potassium is 4.1, chloride is 117, carbon dioxide is 18, anion gap is 11, B1 is 20, and creatinine is 0.8. Her blood sugars are in the 200s, yesterday patient was switched over from insulin drip to Levemir, mealtime Humalog and sliding scale. Today the clinical document improvement educator is at the bedside, he is assisting the patient with reinitiating her insulin pump, patient has already given herself insulin bolus this morning for blood sugar of 252, and her basal rate of 1.15 units per hour will be initiated per previous settings. She remains afebrile, on room air with O2 sat at 98%. Hemodynamically stable. Lung sounds are clear to auscultation. Still complains of a lot of sore throat, oral cavity and posterior pharynx were inspected, no signs of exudate or redness noted. Is having occasional productive cough with production of small amount of white sputum. But no significant chest congestion noted. No wheezes, no rhonchi, no rales. No signs of respiratory distress. Patient has been ambulating within the room, tolerating activity very well. Remains in sinus mechanism with a controlled rate. Awaiting to be seen by cardiology in consultation for the mild troponin leak, she has denied any chest pain or pressure or shortness of breath during this admission. Does have a history of coronary artery disease. On 09/09/2017 patient is seen again in follow-up on the regular medical floor. She is awake and alert in no acute distress. She is doing quite a bit better. Her blood sugars are better controlled. She did have a dip to 85 earlier this morning. Currently 222. Her insulin pump has been resumed. No pulmonary complaints. She denies any shortness of breath, cough or congestion. Her sore throat has resolved. No leukocytosis. Anion gap 11. Creatinine 0.73. Cardiology plans to treat the patient medically. Objective - Vital Signs Vital signs: Vital Signs Temp 97.6 F 09/09/17 07:00 Pulse 86 09/09/17 07:00 Resp 16 09/09/17 07:00 BP 163/81 09/09/17 07:00 Pulse Ox 96 09/09/17 07:00 Intake & Output 09/08/17 09/09/17 09/09/17 18:59 06:59 18:59 Intake Total 240 Output Total 225 Balance 15 Weight 92.533 kg Intake: Oral 240 Output: Urine 225 Other: Voiding Method Indwelling Catheter Toilet # Voids 2 2 - Exam Gen: This is a 62 year old obese female. Appears to be comfortable. HEENT: Head is atraumatic, normocephalic. Pupils equal, round. Sclerae is anicteric. conjunctiva pink. Patient is edentulous NECK: Supple. No JVD. No lymphadenopathy. No thyromegaly. Trachea midline. LUNGS: Clear to auscultation. No wheezes or rhonchi. No intercostal retractions. HEART: Regular rate and rhythm. No murmur.polymerization oven operator is a sinus rhythm. ABDOMEN: Obese. Soft. Bowel sounds are present. No masses. No tenderness.Merino catheter draining clear wilmer urine. EXTREMITIES: No pedal edema. No calf tenderness. NEUROLOGICAL: Patient is awake, alert and oriented x3. Cranial nerves 2 through 12 are grossly intact. SkinExamination of the skin revealed no evidence of significant rashes, suspicious appearing nevi or other concerning lesions. Psychiatric evaluation shows normal affect and mood. - Labs CBC & Chem 7: 09/09/17 07:58 09/09/17 07:58 Labs: Abnormal Lab Results - Last 24 Hours (Table) 09/08/17 09/08/17 09/09/17 Range/Units 17:20 22:14 07:12 Sodium (137-145) mmol/L Chloride (98-107) mmol/L Glucose (74-99) mg/dL POC Glucose (mg/dL) 126 H 135 H 45 L (75-99) mg/dL 09/09/17 09/09/17 09/09/17 Range/Units 07:13 07:58 11:27 Sodium 146 H (137-145) mmol/L Chloride 109 H (98-107) mmol/L Glucose 109 H (74-99) mg/dL POC Glucose (mg/dL) 44 L 222 H (75-99) mg/dL Microbiology - Last 24 Hours (Table) 09/06/17 23:58 Urine Culture - Final Urine,Catheterized Assessment and Plan Assessment: Assessment 1 acute diabetic ketoacidosis with severe anion gap metabolic acidosis, improved with fluid resuscitation and insulin drip. Recovered, current anion gap is 11. Insulin drip has been stopped, patient is reinitiating her insulin pump at her previous home settings. 2 acute gastroenteritis with increased nausea and emesis with intravascular volume depletion/dehydration due to inability to maintain with oral intake, recovered, patient has not had any any further episodes of nausea or vomiting. Tolerating oral fluid and food intake well. 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 12 hypernatremia, likely secondary to intravascular volume depletion related to intractable nausea and vomiting, and dehydration secondary to DKA. This has improved, serum sodium peaked at 149, and is currently down to 146. Patient is now able to tolerate food and fluid intake. This is anticipated to improve further. Plan The patient was seen and evaluated by Dr. Caballero. She is quite stable from the pulmonary and critical care standpoint. Her insulin pump has been resumed. Blood sugars continue to be monitored. She is planning to see Dr. Solomon the supervisor metal hanging in the outpatient setting. We will see the patient on as- needed basis. I, the cosigning physician, have performed a history and physical examination on the patient. Lung sounds are clear. Maintaining good O2 saturations in the 90s on room air. I have discussed the assessment and plan of care with my nurse practitioner, Ashlie Sawyer. I attest the above documented note as dictated by her.
[2017-09-09 17:05] LABS: Glucose,Whole Blood 126 mg/dL (75-99)
[2017-09-09 20:46] LABS: Glucose,Whole Blood 142 mg/dL (75-99)
[2017-09-10 07:19] LABS: Glucose,Whole Blood 82 mg/dL (75-99)
[2017-09-10] MEDS: ENOXAPARIN 40 MG/0.4 ML SYRINGE SQ SCH (07:55)
[2017-09-10] MEDS: PANTOPRAZOLE 40 MG TABLET PO SCH (07:55)
[2017-09-10] MEDS: VALSARTAN 160 MG TAB PO SCH (07:55)
[2017-09-10] MEDS: ASPIRIN 325 MG TAB PO SCH (07:55)
[2017-09-10] MEDS: METOPROLOL TARTRATE 12.5 MG TAB PO SCH (07:56)
[2017-09-10 08:12] VITALS: RESP 16
[2017-09-10] MEDS: INSULIN PUMP MEAL BOLUS 1 UNIT MISC MISCELLANE SCH ×2 (08:20→13:17)
[2017-09-10 11:30] LABS: Glucose,Whole Blood 174 mg/dL (75-99)
--- NOTE | 2017-09-10 15:30 | P.DS ---
Providers Date of admission: 09/06/17 22:35 Attending physician: Vianney Cantu Consults: 09/07/17 00:17 Consult Physician Routine Consulting Provider: Terra Caballero Consult Reason/Comments: icu Do you want consulting provider notified?: Yes 09/07/17 11:31 Consult Physician Routine Consulting Provider: Vu Franklin Consult Reason/Comments: elevated troponin in pt w DKA Do you want consulting provider notified?: Yes Primary care physician: Vianney Cantu Hospital Course: This is 62 years old female who presented to the hospital with diabetic ketoacidosis patient was admitted to the intensive care unit treated with insulin drip and had a glucose improved but became slightly hypoglycemic but was asymptomatic patient was kept in the hospital for another day and have insulin pump was checked and was functioning fine. Glucose continue to be between 101 140 on the day of the discharge patient was completely asymptomatic tolerating diet and back at her baseline mental status according to her and her who was at the bedside patient felt stable from the medical standpoint asked to follow-up closely with her primary care physician between Monday and Monday patient was agreeable to the current treatment plan work note was provided to return in 1 week to work patient was discharged in stable condition Patient Condition at Discharge: Serious Plan - Discharge Summary Discharge Rx Participant: Yes New Discharge Prescriptions: No Action Latanoprost Ophth [Xalatan 0.005%] 1 drops BOTH EYES HS Valsartan [Diovan] 160 mg PO DAILY INSULIN LISPRO (For Pump) [humaLOG (For Pump)] 0.01 units SQ-PUMP CONTINUOUS Discharge Medication List Latanoprost Ophth [Xalatan 0.005%] 1 drops BOTH EYES HS 11/03/16 [History] Valsartan [Diovan] 160 mg PO DAILY 11/03/16 [History] INSULIN LISPRO (For Pump) [humaLOG (For Pump)] 0.01 units SQ-PUMP CONTINUOUS 11/19 [History] Follow up Appointment(s)/Referral(s): Vianney Cantu MD [Primary Care Provider] - 1 Week El Solomon MD [REFERRING] - 1 Week
[2017-09-10 15:53] VITALS: BP 155/72; PULSE 84; TEMP 98
== END 2017-09-10 16:00 | disposition home or self-care (01) | DRG 638 ==
LOC: EC 20:57 → 6ICU 22:35 → 4MS4W 09-08 22:00
PROVIDERS: ADMIT Family Medicine; ATTEND Family Medicine
DX: E10.10 Type 1 diabetes mellitus with ketoacidosis without coma (principal); E87.0 Hyperosmolality and hypernatremia; N17.9 Acute kidney failure, unspecified; E10.649 Type 1 diabetes mellitus with hypoglycemia without coma; E83.39 Other disorders of phosphorus metabolism; E10.319 Type 1 diabetes mellitus with unspecified diabetic retinopathy without macular edema; E86.0 Dehydration; E87.5 Hyperkalemia; E87.8 Other disorders of electrolyte and fluid balance, not elsewhere classified; G89.29 Other chronic pain; H40.9 Unspecified glaucoma; H54.62 Unqualified visual loss, left eye, normal vision right eye; I10 Essential (primary) hypertension; I25.10 Atherosclerotic heart disease of native coronary artery without angina pectoris; K52.9 Noninfective gastroenteritis and colitis, unspecified; J02.9 Acute pharyngitis, unspecified; M54.2 Cervicalgia; M54.9 Dorsalgia, unspecified; R74.8 Abnormal levels of other serum enzymes; D72.829 Elevated white blood cell count, unspecified; E86.9 Volume depletion, unspecified; E66.9 Obesity, unspecified; Z68.31 Body mass index [BMI] 31.0-31.9, adult; Z96.41 Presence of insulin pump (external) (internal); Z79.899 Other long term (current) drug therapy; Z87.891 Personal history of nicotine dependence; Z86.73 Personal history of transient ischemic attack (TIA), and cerebral infarction without residual deficits; Z88.5 Allergy status to narcotic agent
CPT/HCPCS: 36415; 51702; 71046; 80048; 80051; 80053; 81001; 82009; 82550; 82553; 82565; 82803; 82947; 83036; 83605; 83690; 83735; 84100; 84484; 84520; 85025; 85610; 85730; 87086; 87502; 93005; 93306; 96361; 96374; 96375; 99291

== ENCOUNTER → 2020-03-20 | Outpatient (CLI) | payer BC ==
--- NOTE | 2020-03-20 15:29 | XR ---
EXAMINATION TYPE: XR lumbar spine 2 or 3V DATE OF EXAM: 03/20/2020 CLINICAL HISTORY: pain TECHNIQUE: Three views of the lumbar spine are submitted. COMPARISON: 08/04/2010 FINDINGS: There is mild superior endplate loss of height involving L1 of uncertain age and/or etiology. However was not present in 2009. Remaining lumbar segments are intact. Mild degenerative narrowing and spond ylosis as well as facet joint arthropathy. Alignment is unremarkable. IMPRESSION: No acute fracture or dislocation is seen in the lumbar spine. ICD 10 NO FRACTURE, INITIAL EVALUATION
--- NOTE | 2020-03-20 15:31 | XR ---
EXAMINATION TYPE: XR sacroiliac joint comp BILAT DATE OF EXAM: 03/20/2020 COMPARISON: NONE HISTORY: Pain TECHNIQUE: 3 views of the sacroiliac joints are obtained bilaterally. FINDINGS: There is no evidence of sacral widening or sclerosis at this time. No bony destructive proc ess seen. No evidence for fracture. IMPRESSION: No evidence for sacroiliitis at this time.
== END | disposition home or self-care (01) ==
LOC: RADXRMAIN 14:35
PROVIDERS: ATTEND Family Medicine
DX: M46.1 Sacroiliitis, not elsewhere classified (principal)
CPT/HCPCS: 72100; 72202

== ENCOUNTER → 2020-05-08 | Outpatient (CLI) | payer BC ==
--- NOTE | 2020-05-08 14:58 | US ---
EXAMINATION TYPE: US carotid duplex BILAT DATE OF EXAM: 05/08/2020 COMPARISON: NONE CLINICAL HISTORY: 65-year-old female R09.89 arterial bruit. History of TIA and loss of vision in left eye TECHNIQUE: Carotid duplex ultrasound examination. Indirect Doppler criteria is visualized. FINDINGS: EXAM MEASUREMENTS: RIGHT: Peak Systolic Velocity (PSV) cm/sec ----- Right CCA: 73.4 ----- Right ICA: 110 ----- Right ECA: 112 ICA/CCA ratio: 1.5 RIGHT: End Diastole cm/sec ----- Right CCA: 13.6 ----- Right ICA: 17.9 ----- Right ECA: 11.8 LEFT: Peak Systolic Velocity (PSV) cm/sec ----- Left CCA: 89.7 ----- Left ICA: 133 ----- Left ECA: 146 ICA/CCA ratio: 1.4 LEFT: End Diastole cm/sec ----- Left CCA: 16.0 ----- Left ICA: 27.6 ----- Left ECA: 13.1 VERTEBRALS (direction of flow): Right Vertebral: Antegrade Left Vertebral: Antegrade Rhythm: Normal Mild homogeneous plaque with no significant stenosis seen IMPRESSION: Mild atherosclerotic plaque at both bifurcations. Measurements do not suggest a hemodynamically signi ficant stenosis on either side. Criteria for Assigning % of Stenosis / Diameter reduction (Estimation based on the indirect measurements of the internal carotid artery velocities (ICA PSV). 1. Normal (no stenosis)=ICA PSV < 125 cm/s: ratio < 2.0: ICA EDV<40 cm/s. 2. Less than 50% stenosis=ICA PSV < 125 cm/s: ratio < 2.0: ICA EDV<40 cm/s. 3. 50 to 69% stenosis=ICA PSV of 125 to 230 cm/s: ration 2.0 ? 4.0: ICA EDV 40-100 cm/s. 4. Greater than 70% stenosis to near occlusion= ICA PSV > 230 cm/s: ratio > 4.0: ICA EDV > 100 cm/s. 5. Near occlusion= ICA PSV velocities may be low or undetectable: variable ratio and ICA EDV. 6. Total occlusion=unable to detect flow.
== END | disposition home or self-care (01) ==
LOC: RADUSWWP 12:06
PROVIDERS: ATTEND Family Medicine
DX: I65.23 Occlusion and stenosis of bilateral carotid arteries (principal)
CPT/HCPCS: 93880

== ENCOUNTER 2020-05-17 15:09 | Emergency (ER) | payer BC ==
[2020-05-17 15:19] VITALS: RESP 18; TEMP 98.6
--- NOTE | 2020-05-17 15:38 | ED ---
General Adult HPI - General Chief complaint: Extremity Injury, Lower Stated complaint: Fall - L Leg Pain Time Seen by Provider: 05/17/20 15:26 Source: patient Mode of arrival: ambulatory Limitations: no limitations - History of Present Illness Initial comments: Patient presents the ED with her for evaluation. Patient states that she tripped on a curb at about noon yesterday and fell onto her bilateral knees at that time. Patient states that she has had left knee and upper calf pain since then. Patient states that her pain is worse with ambulation. Patient denies any other injury, head injury, LOC, headache, neck/back/hip/upper extremity pain, chest pain, dyspnea, dizziness, abdominal pain, nausea or vomiting, focal neuro deficit, or any other symptoms or complaints. Patient states that her last tetanus shot was within the last 5 years. - Related Data Home Medications Medication Instructions Recorded Confirmed Latanoprost Ophth [Xalatan 0.005%] 1 drops BOTH EYES HS 11/03/16 09/06/17 Valsartan [Diovan] 160 mg PO DAILY 11/03/16 09/06/17 INSULIN LISPRO (For Pump) [humaLOG 0.01 units SQ-PUMP CONTINUOUS 09/06/17 09/06/17 (For Pump)] Allergies Allergy/AdvReac Type Severity Reaction Status Date / Time codeine Allergy Nausea & Verified 05/17/20 15:16 Vomiting Review of Systems ROS Statement: Those systems with pertinent positive or pertinent negative responses have been documented in the HPI. ROS Other: All systems not noted in ROS Statement are negative. Past Medical History Past Medical History: CVA/TIA, Diabetes Mellitus, Hypertension Additional Past Medical History / Comment(s): diabetes mellitus type 1 on insulin pump, chronic back and neck pain, blind in left eye, diabetic retinopathy, glaucoma History of Any Multi-Drug Resistant Organisms: None Reported Past Surgical History: Orthopedic Surgery, Tubal Ligation Additional Past Surgical History / Comment(s): bilateral intraocular lens implants, laser surgery on her left eye Past Anesthesia/Blood Transfusion Reactions: No Reported Reaction Past Psychological History: No Psychological Hx Reported Smoking Status: Never smoker Past Alcohol Use History: None Reported Past Drug Use History: None Reported - Past Family History Mother Additional Family Medical History / Comment(s): Mother had history of irregular heartbeat. Father Additional Family Medical History / Comment(s): Father at age 44 from complications of diabetes. Sister(s) Additional Family Medical History / Comment(s): Patient has one sister diagnosed with brain cancer and survived. She has no history of diabetes. Patient does not have any brothers. Patient has 2 children that are not diabetic. General Exam Limitations: no limitations General appearance: alert, in no apparent distress Head exam: Present: atraumatic, normocephalic Eye exam: Present: normal appearance, EOMI ENT exam: Present: mucous membranes moist Neck exam: Present: other (Trachea is in midline). Absent: tenderness Respiratory exam: Present: normal lung sounds bilaterally. Absent: respiratory distress, wheezes, rales, rhonchi Cardiovascular Exam: Present: regular rate, normal rhythm, normal heart sounds, other (Normal dorsalis pedis pulses bilaterally) GI/Abdominal exam: Present: soft. Absent: distended, tenderness, guarding Extremities exam: Present: full ROM, other (Superficial abrasions are noted over bilateral anterior knees; mild diffuse left knee and left upper calf tenderness; no left knee joint laxity or deformity is appreciated; no left calf swelling is appreciated; negative Homans sign bilaterally) Back exam: Present: normal inspection. Absent: tenderness Neurological exam: Present: alert, oriented X3. Absent: motor sensory deficit Psychiatric exam: Present: normal affect, normal mood Skin exam: Present: warm, dry, normal color Course Vital Signs 05/17/20 15:17 Temperature 98.6 F Pulse Rate 82 Respiratory 18 Rate Blood Pressure 142/83 O2 Sat by Pulse 98 Oximetry Medical Decision Making - Medical Decision Making Patient has a nondisplaced left fibular fracture seen on x-rays. ED RN to apply a left knee immobilizer prior to discharge from the ED today. Patient states that her has crutches, a cane and a walker at home that she can use as needed. Patient was counseled about fibular fractures. Patient was clearly explained return and follow-up instructions, and she was instructed to follow up closely with her PCP, as well as orthopedic surgery. Patient feels comfortable with the plan. Disposition Clinical Impression: Abrasion of knee, bilateral, Closed left fibular fracture Disposition: HOME SELF-CARE Condition: Stable Instructions (If sedation given, give patient instructions): Leg Fracture (ED), Contusion in Adults (ED), Abrasion (ED) Additional Instructions: Return to the ER immediately should you develop new or worsening pain, a fever, chest pain, shortness of breath, feeling dizzy or faint, or new or worsening symptoms. Follow up closely with your primary care provider. Is patient prescribed a controlled substance at d/c from ED?: No Referrals: Vianney Cantu MD [Primary Care Provider] - 1-2 days Jose Angel Robertson DO [Medical Doctor] - 1-2 days Time of Disposition: 16:45
--- NOTE | 2020-05-17 16:06 | XR ---
EXAMINATION TYPE: XR tibia fibula LT DATE OF EXAM: 05/17/2020 COMPARISON: NONE HISTORY: Pain TECHNIQUE: 4 views FINDINGS: There is minimally displaced transverse fracture of the proximal shaft of the fibula. The t ibia appears intact. Ankle mortise is anatomic. There is soft tissue swelling over the medial malleol us. The knee joint appears intact. IMPRESSION: Acute fracture of the proximal shaft of the fibula.
--- NOTE | 2020-05-17 16:09 | XR ---
EXAMINATION TYPE: XR knee 4V LT DATE OF EXAM: 05/17/2020 COMPARISON: NONE HISTORY: Pain. Fall. TECHNIQUE: 4 views FINDINGS: There is transverse fracture proximal shaft of the fibula. There is separation of the fragm ents less than 5 mm. The knee joint is anatomic. There is no evidence of knee joint effusion. Knee alistair int spaces appear normal. IMPRESSION: Nondisplaced proximal fibular fracture.
[2020-05-17 17:16] VITALS: BP 180/70; PULSE 74
== END 2020-05-17 17:16 | disposition home or self-care (01) ==
LOC: EC 15:09
DX: S82.832A Other fracture of upper and lower end of left fibula, initial encounter for closed fracture (principal); S80.211A Abrasion, right knee, initial encounter; I10 Essential (primary) hypertension; E10.319 Type 1 diabetes mellitus with unspecified diabetic retinopathy without macular edema; E10.39 Type 1 diabetes mellitus with other diabetic ophthalmic complication; H42 Glaucoma in diseases classified elsewhere; H54.62 Unqualified visual loss, left eye, normal vision right eye; Z79.4 Long term (current) use of insulin; Z79.899 Other long term (current) drug therapy; Z88.5 Allergy status to narcotic agent; Z86.73 Personal history of transient ischemic attack (TIA), and cerebral infarction without residual deficits; W01.0XXA Fall on same level from slipping, tripping and stumbling without subsequent striking against object, initial encounter
CPT/HCPCS: 73590; 73564; 99283; L1830